=== PATIENT | female | born 1935 | race Caucasian/White ===

== ENCOUNTER → 2016-07-14 | Outpatient (CLI) | payer MEDICARE, OTHER ==
--- NOTE | 2016-07-14 18:53 | Diagnostic Imaging Report ---
Bilateral screening mammogram The current study was also evaluated with a Computer Aided Detection (CAD) system. Indication: Screening. No current complaints stated on the questionnaire. COMPARISON: 05/15/15 FINDINGS: The breasts are composed of scattered fibroglandular densities. There are scattered benign-appearing calcifications. Allowing for technique and positional differences, no suspicious change is seen. IMPRESSION: No significant change. ACR BI-RADS Category 2: Benign findings. Result letter will be mailed to the patient. Note: At least 10% of breast cancer is not imaged by mammography. Dictated by: Dictated on workstation # [id number]
== END ==
LOC: RAD 10:17
PROVIDERS: ATTEND Physician Assistant Medical
DX: Z12.31 Encounter for screening mammogram for malignant neoplasm of breast (principal)
CPT/HCPCS: 77067

== ENCOUNTER 2017-10-03 12:55 | Inpatient (IN) | payer MEDICARE, OTHER ==
[~2017-10-03] VITALS: Ht 165.1 cm; Wt 67.1 kg
[2017-10-03] VITALS (13 sets, daily range): BP systolic 128–145; BP diastolic 60–93
[2017-10-03] MEDS ORDERED: NS IV ONE (13:15)
[2017-10-03] MEDS ORDERED: ACETAMINOPHEN 500 MG TAB (TYLENOL) PO PRN (13:15)
[2017-10-03 13:21] LABS: BASOPHILS % (AUTO) 0 % (0-10); EOSINOPHILS % (AUTO) 0 % (0-10); HEMATOCRIT 29 % (35-52); HEMOGLOBIN 8.1 G/DL (11.5-16.0); LYMPHOCYTES # (AUTO) 0.7 X 10^3 (1.0-4.0); LYMPHOCYTES % (AUTO) 5 % (12-44); MEAN CORPUSCULAR HEMOGLOBIN 23 PG (25-34); MEAN CORPUSCULAR HGB CONC 28 G/DL (32-36); MEAN CORPUSCULAR VOLUME 82 FL (80-99); MEAN PLATELET VOLUME 9.1 FL (7.4-10.4); MONOCYTES # (AUTO) 0.8 X 10^3 (0.0-1.0); MONOCYTES % (AUTO) 5 % (0-12); NEUTROPHILS # (AUTO) 12.7 X 10^3 (1.8-7.8); NEUTROPHILS % (AUTO) 90 % (42-75); PLATELET COUNT 382 10^3/uL (130-400); RED BLOOD COUNT 3.48 10^6/uL (4.35-5.85); RED CELL DISTRIBUTION WIDTH 19.4 % (10.0-14.5); WHITE BLOOD COUNT 14.2 10^3/uL (4.3-11.0)
[2017-10-03 13:36] LABS: INR 1.7 (0.8-1.4); PROTHROMBIN TIME PATIENT 19.8 SEC (12.2-14.7)
[2017-10-03 13:40] LABS: CLARITY,URINE SLIGHTLY CLOUDY; COLOR,URINE YELLOW; GLUCOSE, URINE (UA) NEGATIVE (NEGATIVE); KETONES,URINE 1+ (NEGATIVE); LEUKOCYTE ESTERASE ,URINE 1+ (NEGATIVE); NITRITE,URINE NEGATIVE (NEGATIVE); PH,URINE 6 (5-9); PROTEIN,URINE 2+ (NEGATIVE); UROBILINOGEN,URINE 4 MG/DL (NORMAL)
[2017-10-03 13:40] LABS: ALBUMIN 1.8 GM/DL (3.2-4.5); BILIRUBIN,TOTAL 1.5 MG/DL (0.1-1.0); CALCIUM 7.8 MG/DL (8.5-10.1); CREATININE SERUM 0.96 MG/DL (0.60-1.30); TOTAL PROTEIN 5.6 GM/DL (6.4-8.2)
--- NOTE | 2017-10-03 13:51 | Diagnostic Imaging Report ---
INDICATION: Shortness of breath and fatigue and weakness. Frontal chest obtained at 01:23 p.m. Heart is normal in size. There are chronic-appearing increased interstitial markings. There is fullness in the left hilum, would consider chest CT with contrast to exclude underlying mass. There is no pneumothorax or pleural fluid. IMPRESSION: Fullness in left hilum, underlying mass cannot be excluded. Recommend CT chest for further evaluation. There are chronic-appearing increased interstitial markings. Dictated by: Dictated on workstation # [id number]
--- NOTE | 2017-10-03 13:57 | ED General ---
General Chief Complaint: General Problems/Pain Stated Complaint: AFIB WITH RVR,GEN WEAKNESS Nursing Triage Note: PT TO [facility] BY [facility] WITH CC OF FEVER AND GENERAL WEAKNESS. PT WAS INCONTENANT, FOUND IN BED BY KRYSTYNA TODAY. KRYSTYNA STATES PT FELL THIS A.M. GETTING A SKIN TEAR ON RT ARM. DENIES HITTING HER HEAD, NO LOC. Nursing Sepsis Screen: Possible Sepsis Risk Source of Information: Patient, EMS Exam Limitations: No Limitations (CHAUNCEY HENAO MD) History of Present Illness Date Seen by Provider: Oct 03, 2017 Time Seen by Provider: 13:00 Initial Comments Here by EMS with report of fever and weakness. Patient stays at [facility]. Patient was incontinent of urine and stool. Apparently fell this morning and had a skin tear to the right arm. No report of hitting her head or loss of consciousness. Patient is generally very weak and does have fever. Denies shortness of breath does have cough. Timing/Duration: 12 Hours, Getting Worse Severity: Moderate, Severe Associated Systoms: No Chest Pain; Cough, Fever/Chills; No Nausea/Vomiting, No Shortness of Air; Weakness (CHAUNCEY HENAO MD) Allergies and Home Medications Allergies Coded Allergies: No Known Drug Allergies (Unverified , 10/03/17) Patient Home Medication List Home Medication List Reviewed: Yes (CHAUNCEY HENAO MD) Home Medication List Reviewed: Yes (JADIEL HENDRICKSON APRN) Review of Systems Review of Systems Constitutional: see HPI; No chills; fever, malaise, weakness EENTM: no symptoms reported Respiratory: cough; No short of breath Cardiovascular: No chest pain; edema Gastrointestinal: No abdominal pain, No nausea, No vomiting; other ( incontinent of stool) Genitourinary: No dysuria; incontinence, other (foul-smelling urine) Musculoskeletal: No back pain; muscle weakness Skin: lesions (left lower extremity and right arm) Psychiatric/Neurological: Denies Headache; Weakness (CHAUNCEY HENAO MD) All Other Systems Reviewed Negative Unless Noted: Yes (CHAUNCEY HENAO MD) Past Nxiumsq-Mqvsxf-Yejcih Hx Past Med/Social Hx: Reviewed Nursing Past Med/Soc Hx (CHAUNCEY HENAO MD) Patient Social History Alcohol Use: Denies Use Recreational Drug Use: No Smoking Status: Never a Smoker Recent Foreign Travel: No Contact w/Someone Who Travel: No Recent Infectious Disease Expo: No Recent Hopitalizations: No (CHAUNCEY HENAO MD) Seasonal Allergies Seasonal Allergies: No (CHAUNCEY HENAO MD) Past Medical History Surgeries: Yes (BI LAT HIP) Eye Surgery, Gallbladder, Hysterectomy, Orthopedic Respiratory: No Cardiac: Yes Hypertension Genitourinary: No Gastrointestinal: No Musculoskeletal: Yes Endocrine: No HEENT: Yes Cataract Cancer: No Psychosocial: No Integumentary: No (CHAUNCEY HENAO MD) Family Medical History Reviewed Nursing Family Hx (CHAUNCEY HENAO MD) No Pertinent Family Hx (CHAUNCEY HENAO MD) Physical Exam-Suspected Sepsis Physical Exam Vital Signs Vital Signs - First Documented 10/03/17 16:10 Resp 20 (JADIEL HENDRICKSON APRN) Vital Signs Capillary Refill : Less Than 3 Seconds (CHAUNCEY HENAO MD) Blood Pressure Mean: 86 Height, Weight, BMI Height: 5'5.00" Weight: 140lbs. oz. 63.803010et; BMI Method:Stated General Appearance: Mild Distress, Thin HEENT: PERRL/EOMI, Pharynx Normal Neck: Non Tender, Supple Respiratory: No Respiratory Distress, Crackles Cardiovascular: No Murmur, Tachycardia Gastrointestinal: Non Tender, Soft Back: Normal Inspection, No CVA Tenderness, No Vertebral Tenderness Extremity: Normal Capillary Refill, Pedal Edema (2+ to the mid tibia bilateral) Neurologic/Psychiatric: Alert, Motor Weakness (global) Skin: normal color, other (skin breakdown to the buttocks. Incontinent of urine and stool and noted on legs and groin area. Skin tear to the right forearm and healing wound to the left lower extremity. Both of these covered with dressings.) (CHAUNCEY HENAO MD) Focused Exam Lactate Level 10/03/17 13:00: Lactic Acid Level 5.05*H 10/03/17 15:05: Lactic Acid Level 2.29*H 10/03/17 18:05: Lactic Acid Level 1.38 (JADIEL HENDRICKSON APRN) Lactic Acid Level (JADIEL HENDRICKSON APRN) Procedures/Interventions Lumen: triple Central Line Procedure: betadine prep, sterile drapes applied, sterile dressing applied Position: internal jugular (R) Anesthesia: Lidocaine Volume Anesthetic (ccs): 3 Complications: none Post Position: sutured (JADIEL HENDRICKSON APRN) Progress/Results/Core Measures Suspected Sepsis Recent Fever Within 48 Hours: Yes Infection Criteria Present: Suspected New Infection New/Unexplained Altered Menta: No Sepsis Screen: Possible Sepsis Risk SIRS Temperature:100.2 Pulse: 93 Respiratory Rate: Laboratory Tests 10/03/17 13:00: White Blood Count 14.2H Blood Pressure 124 /68 Mean: 86 10/03/17 13:00: Lactic Acid Level 5.05*H 10/03/17 15:05: Laboratory Tests 10/03/17 13:00: Creatinine 0.96, INR Comment 1.7H, Platelet Count 382, Total Bilirubin 1.5H (CHAUNCEY HENAO MD) Results/Orders Lab Results Laboratory Tests Test 10/03/17 13:00 10/03/17 13:15 10/03/17 15:05 10/03/17 16:36 Range/Units White Blood Count 14.2 H 4.3-11.0 10^3/uL Red Blood Count 3.48 L 4.35-5.85 10^6/uL Hemoglobin 8.1 L 11.5-16.0 G/DL Hematocrit 29 L 35-52 % Mean Corpuscular Volume 82 80-99 FL Mean Corpuscular Hemoglobin 23 L 25-34 PG Mean Corpuscular Hemoglobin Concent 28 L 32-36 G/DL Red Cell Distribution Width 19.4 H 10.0-14.5 % Platelet Count 382 130-400 10^3/uL Mean Platelet Volume 9.1 7.4-10.4 FL Neutrophils (%) (Auto) 90 H 42-75 % Lymphocytes (%) (Auto) 5 L 12-44 % Monocytes (%) (Auto) 5 0-12 % Eosinophils (%) (Auto) 0 0-10 % Basophils (%) (Auto) 0 0-10 % Neutrophils # (Auto) 12.7 H 1.8-7.8 X 10^3 Lymphocytes # (Auto) 0.7 L 1.0-4.0 X 10^3 Monocytes # (Auto) 0.8 0.0-1.0 X 10^3 Eosinophils # (Auto) 0.0 0.0-0.3 10^3/uL Basophils # (Auto) 0.0 0.0-0.1 10^3/uL Neutrophils % (Manual) 90 % Lymphocytes % (Manual) 4 % Monocytes % (Manual) 2 % Eosinophils % (Manual) 1 % Basophils % (Manual) 0 % Band Neutrophils 3 % Hypochromasia MODERATE Anisocytosis MARKED Spherocytes SLIGHT Prothrombin Time 19.8 H 12.2-14.7 SEC INR Comment 1.7 H 0.8-1.4 Activated Partial Thromboplast Time 27 24-35 SEC Sodium Level 146 H 135-145 MMOL/L Potassium Level 2.3 *L 3.6-5.0 MMOL/L Chloride Level 97 L 98-107 MMOL/L Carbon Dioxide Level 34 H 21-32 MMOL/L Anion Gap 15 H 5-14 MMOL/L Blood Urea Nitrogen 17 7-18 MG/DL Creatinine 0.96 0.60-1.30 MG/DL Estimat Glomerular Filtration Rate 56 BUN/Creatinine Ratio 18 Glucose Level 189 H 70-105 MG/DL Lactic Acid Level 5.05 *H 2.29 *H 0.50-2.00 MMOL/L Calcium Level 7.8 L 8.5-10.1 MG/DL Corrected Calcium 9.6 8.5-10.1 MG/DL Total Bilirubin 1.5 H 0.1-1.0 MG/DL Aspartate Amino Transf (AST/SGOT) 13 5-34 U/L Alanine Aminotransferase (ALT/SGPT) 6 0-55 U/L Alkaline Phosphatase 84 40-136 U/L Total Protein 5.6 L 6.4-8.2 GM/DL Albumin 1.8 L 3.2-4.5 GM/DL Urine Color YELLOW Urine Clarity SLIGHTLY CLOUDY Urine pH 6 5-9 Urine Specific [place] 1.015 L 1.016-1.022 Urine Protein 2+ H NEGATIVE Urine Glucose (UA) NEGATIVE NEGATIVE Urine Ketones 1+ H NEGATIVE Urine Nitrite NEGATIVE NEGATIVE Urine Bilirubin 1+ H NEGATIVE Urine Urobilinogen 4 H NORMAL MG/DL Urine Leukocyte Esterase 1+ H NEGATIVE Urine RBC (Auto) 4+ H NEGATIVE Urine RBC 0-2 /HPF Urine WBC RARE /HPF Urine Squamous Epithelial Cells 2-5 /HPF Urine Crystals NONE /LPF Urine Bacteria NEGATIVE /HPF Urine Casts NONE /LPF Urine Mucus SMALL H /LPF Urine Culture Indicated NO Glucometer 174 H 70-110 MG/DL Test 10/03/17 17:15 10/03/17 18:05 Range/Units Sodium Level 145 135-145 MMOL/L Potassium Level 2.0 *L 3.6-5.0 MMOL/L Chloride Level 102 98-107 MMOL/L Carbon Dioxide Level 34 H 21-32 MMOL/L Anion Gap 9 5-14 MMOL/L Blood Urea Nitrogen 16 7-18 MG/DL Creatinine 0.79 0.60-1.30 MG/DL Estimat Glomerular Filtration Rate > 60 BUN/Creatinine Ratio 20 Glucose Level 179 H 70-105 MG/DL Calcium Level 6.9 L 8.5-10.1 MG/DL Corrected Calcium 8.7 8.5-10.1 MG/DL Magnesium Level 1.1 L 1.8-2.4 MG/DL Total Bilirubin 1.4 H 0.1-1.0 MG/DL Aspartate Amino Transf (AST/SGOT) 14 5-34 U/L Alanine Aminotransferase (ALT/SGPT) 8 0-55 U/L Alkaline Phosphatase 73 40-136 U/L Total Protein 5.0 L 6.4-8.2 GM/DL Albumin 1.7 L 3.2-4.5 GM/DL Lactic Acid Level 1.38 0.50-2.00 MMOL/L (JADIEL HENDRICKSON APRN) Micro Results Microbiology 10/03/17 Urine Culture - Preliminary, Resulted Sent To Rml (JADIEL HENDRICKSON APRN) Medications Given in ED Current Medications Medications Dose Ordered Sig/Lorne Route Start Time Stop Time Status Last Admin Dose Admin Acetaminophen 1,000 mg ONCE PRN PO 10/03/17 13:15 10/03/17 13:31 DC 10/03/17 13:30 1,000 MG Iohexol 75 ml ONCE ONCE IV 10/03/17 14:30 10/03/17 14:31 DC 10/03/17 14:50 75 ML Piperacillin Sod/ Tazobactam Sod 4.5 gm/Dextrose 100 ml @ 200 mls/hr ONCE ONCE IV 10/03/17 14:15 10/03/17 14:44 DC 10/03/17 15:05 200 MLS/HR Sodium Chloride 250 ml ONCE ONCE IV 10/03/17 14:30 10/03/17 14:31 DC 10/03/17 14:50 80 ML Sodium Chloride 1,973.13 ml @ 1,973.13 mls/hr ONCE ONCE IV 10/03/17 13:15 10/03/17 14:14 DC 10/03/17 13:31 1,973.13 MLS/HR (JADIEL HENDRICKSON APRN) Vital Signs/I&O 10/03/17 10/03/17 10/03/17 10/03/17 12:55 12:55 13:30 16:10 Temp 100.2 100.2 96.0 Pulse 93 78 Resp 20 B/P (MAP) 124/68 (86) 129/65 (86) Pulse Ox 98 98 98 O2 Delivery Nasal Cannula Nasal Cannula Nasal Cannula O2 Flow Rate 2.00 2.00 2.00 10/03/17 10/03/17 10/03/17 10/03/17 16:15 16:23 16:30 16:45 Temp 97.7 Pulse 87 84 78 Resp 23 15 B/P (MAP) 143/93 (110) 145/60 (88) Pulse Ox 95 95 93 O2 Delivery Room Air Room Air Room Air 10/03/17 10/03/17 10/03/17 10/03/17 17:00 17:15 17:30 17:45 Pulse 82 73 85 76 Resp 15 31 10 15 B/P (MAP) 135/72 (93) 135/67 (89) 144/74 (97) 140/70 (93) Pulse Ox 95 94 96 98 O2 Delivery Room Air Room Air Room Air Room Air 10/03/17 10/03/17 10/03/17 10/03/17 18:00 19:00 19:00 19:35 Pulse 78 84 97 81 Resp 21 14 B/P (MAP) 141/72 (95) 137/81 (99) Pulse Ox 93 97 93 O2 Delivery Room Air Room Air 10/03/17 10/03/17 10/03/17 10/03/17 20:00 20:00 20:00 20:04 Temp 97.1 Pulse 91 Resp 12 B/P (MAP) 138/82 (100) Pulse Ox 95 100 O2 Delivery Room Air Room Air Nasal Cannula O2 Flow Rate 2.00 10/03/17 10/03/17 21:00 21:59 Pulse 72 Resp 14 B/P (MAP) 128/69 (88) Pulse Ox 97 95 O2 Delivery Room Air Room Air (HENDRICKSON,PETER J PORTAL ARCHITECT) Vital Signs/I&O Capillary Refill : Less Than 3 Seconds (CHAUNCEY HENAO MD) Blood Pressure Mean: 86 Progress Note : Progress Note Seen and evaluated on arrival by EMS. Patient ill-appearing. Sepsis workup initiated including labs, blood cultures and lactic acid. UA ordered as well.. Normal saline 500 mL bolus from EMS ongoing. Due to the appearance and concerns for sepsis, high volume fluid resuscitation initiated at 30 mL/kg. Lactic acid elevated at 5.05. Fluids continuing. Chest x-ray shows concerning mass to the left upper chest and CT ordered. Given patient's septic shock condition, central line indicated and was placed as dictated above. CT chest with contrast after. Zosyn 4.5 g IV initiated. 1530: I did discuss the case with Dr. Quinn. Patient does have septic shock findings with elevated lactic acid. CT chest would indicate mass in the left upper chest. Concerns for possible postobstructive pneumonia. She accepts patient for admission to the ICU. Discussed with patient and family who agree with plan. 1540: I attest a focused exam at this time. (CHAUNCEY HENAO MD) Diagnostic Imaging Diagonstic Imaging: Xray Plain Films/CT/US/NM/MRI: chest Comments VIA [facility]. [place], [place] NAME: GALLO VERDUZCO [facility] REC#: [id number] PT STATUS: REG ER : 1935 PHYSICIAN: CHAUNCEY HENAO MD ADMIT DATE: 10/03/17/ER Draft Date of Exam:10/03/17 CHEST 1 VIEW, AP/PA ONLY INDICATION: Shortness of breath and fatigue and weakness. Frontal chest obtained at 01:23 p.m. Heart is normal in size. There are chronic-appearing increased interstitial markings. There is fullness in the left hilum, would consider chest CT with contrast to exclude underlying mass. There is no pneumothorax or pleural fluid. IMPRESSION: Fullness in left hilum, underlying mass cannot be excluded. Recommend CT chest for further evaluation. There are chronic-appearing increased interstitial markings. Dictated on workstation # [id number] Dict: 10/03/17 1346 Trans: 10/03/17 1350 [id number] Interpreted by: AMELIE CONRAD MD Electronically signed by: Lucy Imaging: Xray Plain Films/CT/US/NM/MRI: chest Comments VIA [facility]. [place], [place] NAME: GALLO VERDUZCO [facility] REC#: [id number] PT STATUS: REG ER : 1935 PHYSICIAN: CHAUNCEY HENAO MD ADMIT DATE: 10/03/17/ER Draft Date of Exam:10/03/17 CHEST 1 VIEW, AP/PA ONLY INDICATION: Line placement Frontal chest obtained at 242 hours p.m. and compared to same day at 123 hours p.m. Heart is normal in size. Fullness of the left hilum is again noted, underlying mass not excluded. There are chronic appearing increased interstitial markings with some basilar scarring in the right side. There is a right IJ central catheter with tip overlying the SVC right atrial junction. There is no pneumothorax following line placement. IMPRESSION: Chronic interstitial changes with some parenchymal scarring in right base. New central catheter seen with tip overlying SVC distally. No pneumothorax. Fullness in left perihilar region, consider chest CT to rule out underlying mass. Dictated on workstation # [id number] Dict: 10/03/17 1447 Trans: 10/03/17 1452 [facility] [id number] Interpreted by: AMELIE CONRAD MD Electronically signed by: (CHAUNCEY HENAO MD) Departure Communication (Admissions) Time/Spoke to Admitting Phy: 15:30 (CHAUNCEY HENAO MD) Impression Primary Impression: Septic shock Additional Impressions: Mass of left lung Pneumonia involving left lung Qualified Codes: J18.1 - Lobar pneumonia, unspecified organism Disposition: ADMITTED INPATIENT Condition: Stable Admissions Decision to Admit Reason: Admit from ER (General) Decision to Admit/Date: Oct 03, 2017 Time/Decision to Admit Time: 15:30 (CHAUNCEY HENAO MD) Departure-Patient Inst. Referrals: MARY WHITAKER DO (PCP) Primary Care Physician CHAUNCEY HENAO MD Oct 03, 2017 13:57 JADIEL HENDRICKSON APRN Oct 03, 2017 14:54
[2017-10-03 14:00] LABS: BACTERIA,URINE NEGATIVE /HPF; BILIRUBIN,URINE 1+ (NEGATIVE); RBC,URINE 0-2 /HPF; WBC,URINE RARE /HPF
[2017-10-03 14:01] LABS: ANISOCYTOSIS MARKED; BAND NEUTROPHILS 3 %; BASOPHILS % (MANUAL) 0 %; EOSINOPHILS % (MANUAL) 1 %; HYPOCHROMASIA MODERATE; LYMPHOCYTES % (MANUAL) 4 %; MONOCYTES % (MANUAL) 2 %; NEUTROPHILS % (MANUAL) 90 %; SPHEROCYTES SLIGHT
[2017-10-03 14:03] LABS: POTASSIUM 2.3 MMOL/L (3.6-5.0)
[2017-10-03] MEDS ORDERED: PIPERACILLIN SODIUM/TAZOBACTAM 4.5 GM in D5W 100 ML IVPB 100 ML IV ONE (14:15)
[2017-10-03] MEDS ORDERED: IOHEXOL 350 MG/ML 100 ML (OMNIPAQUE 350) VIAL IV ONE (14:30)
[2017-10-03] MEDS ORDERED: NS 250 ML (IVPB) BAG IV ONE (14:30)
[2017-10-03] MEDS ORDERED: RECEIVED CONTRAST (Hold Metformin) IV SCH (14:30)
--- NOTE | 2017-10-03 14:52 | Diagnostic Imaging Report ---
INDICATION: Line placement Frontal chest obtained at 242 hours p.m. and compared to same day at 123 hours p.m. Heart is normal in size. Fullness of the left hilum is again noted, underlying mass not excluded. There are chronic appearing increased interstitial markings with some basilar scarring in the right side. There is a right IJ central catheter with tip overlying the SVC right atrial junction. There is no pneumothorax following line placement. IMPRESSION: Chronic interstitial changes with some parenchymal scarring in right base. New central catheter seen with tip overlying SVC distally. No pneumothorax. Fullness in left perihilar region, consider chest CT to rule out underlying mass. Dictated by: Dictated on workstation # [id number]
--- NOTE | 2017-10-03 15:52 | Diagnostic Imaging Report ---
PROCEDURE: CT chest with contrast only. TECHNIQUE: Multiple contiguous axial images were obtained through the chest after administration of intravenous contrast. INDICATION: Cough, fever COMPARISON: There are no previous CT chest examinations available for comparison. FINDINGS: The plain film examination of the chest performed earlier today at 1:23 PM noted a fullness in the left hilum raising the question of a neoplastic mass in this area. On this exam, there is indeed a sizable 5.4 x 6.6 x 6.1 CM heterogeneous mass along the medial aspect of the left upper lung. This mass should be considered neoplastic until proven otherwise. The heart is mildly enlarged. There are coronary calcifications evident. The aorta is not abnormally dilated and there is no sign of dissection. The pulmonary arteries were not well opacified and consequently difficult to assess for a pulmonary embolus. There is no mediastinal or hilar adenopathy. There are chronic pulmonary changes evident and there are coarse interstitial densities about both darryl and in both lung bases, particularly on the right. There is no obvious breast mass. The sections through the upper abdomen fail to show any sign of an acute abnormality. There are surgical clips about the gallbladder fossa consistent with a prior cholecystectomy. There appears to be a small collection of fluid in this area. This may be fluid within the bowel as opposed to a free fluid collection. Also, there is a 1.3 x 1.4 CM nodule associated with the medial nenita of the right adrenal gland. This may represent a benign process. The possibility that this is secondary to metastatic disease secondary to the large lung mass cannot be entirely excluded however. If further imaging is desired, PET CT would be recommended. The bone windows show no sign of a fracture or of a destructive lesion. IMPRESSION: 1. There is a large mass along the medial aspect of the left upper lobe. This should be considered neoplastic until proven otherwise. 2. There is cardiomegaly and coronary artery disease and chronic pulmonary disease. There is no acute cardiopulmonary abnormality noted otherwise. 3. The nodule associated with the right adrenal gland may represent a benign process. The possibility that this is neoplastic in nature cannot be entirely excluded. Recommendations as above. 4. The fluid collection in the right upper quadrant may be fluid within the bowel. If further study is desired, then a complete CT abdomen and pelvis exam should be obtained. Dictated by: Dictated on workstation # [id number]
--- OUTSIDE RECORDS SUMMARY | 2017-10-03 16:35 | XMS REPORT | Continuity of Care Document ---
Author Author [facility] Organization [facility] [address] [facility] Address Unknown Phone Unavailable Allergies There is no data. Medications There is no data. 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 Results There is no data. Encounters ACCT No. Visit Date/Time Discharge Status Pt. Type Provider Facility Loc./Unit Complaint [id number] 07/14/2016 10:17:00 07/14/2016 23:59:59 CLS Outpatient CHERELLE MILLER [facility] [address] RAD SCREENING FOR BREAST CA [id number] 05/15/2015 10:22:00 05/15/2015 23:59:59 CLS Outpatient CHERELLE MILLER [facility] [address] [facility] RAD SCREENING, OSTEOPOROSIS
[2017-10-03] MEDS ORDERED: LACTATED RINGERS 1,000 ML IV ONE (17:42)
[2017-10-03 17:52] LABS: ALANINE AMINOTRANSFERASE 8 U/L (0-55); ALBUMIN 1.7 GM/DL (3.2-4.5); ALKALINE PHOSPHATASE 73 U/L (40-136); BILIRUBIN,TOTAL 1.4 MG/DL (0.1-1.0); BUN/CREATININE RATIO 20; CALCIUM 6.9 MG/DL (8.5-10.1); CARBON DIOXIDE 34 MMOL/L (21-32); CHLORIDE 102 MMOL/L (98-107); CREATININE SERUM 0.79 MG/DL (0.60-1.30); GFR ESTIMATED > 60; GLUCOSE 179 MG/DL (70-105); MAGNESIUM 1.1 MG/DL (1.8-2.4); SODIUM 145 MMOL/L (135-145)
[2017-10-03] MEDS: LACTATED RINGERS 1,000 ML IV SCH (17:53)
--- NOTE | 2017-10-03 18:25 | History & Physicial ([facility]) ---
HPI History of Present Illness: 82 yo F that presented to ER with a week of not feeling good. States that she had fatigue for the last 2 months with weight loss of 20#. States that she had chills and night sweats during this time. Denies any pain other then chronic pain in her low back. Couple day history of shortness of breath. Patient and grandson are poor historians Source: patient, family (Grandson) Date seen by provider: Oct 03, 2017 Time Seen by Provider: 17:30 Attending Physician Gene Quinn MD PCP Valentine Hou DO Consult Date of Admission Oct 03, 2017 at 15:35 Home Medications Home Medications Reviewed patient Home Medication Reconciliation performed by pharmacy medication reconciliations sterile processing technician and/or nursing. Patients Allergies have been reviewed. Allergies Coded Allergies: No Known Drug Allergies (Unverified , 10/03/17) VSW-Nlxwam-Rifywu Hx Patient Social History Living Status: Lives at home with grandson Alcohol Use: Denies Use Recreational Drug Use: No Smoking Status: Never a Smoker Recent Foreign Travel: No Contact w/other who traveled: No Recent Hopitalizations: No Recent Infectious Disease Expo: No Physical Abuse Screen: No Sexual Abuse: No Immunizations Up To Date Date of Pneumonia Vaccine: Oct 03, 2012 Past Medical History Diabetes HTN Polio Family Medical History Significant Family History: No Pertinent Family Hx Review of Systems ([facility]) Constitutional: chills, weakness, weight loss EENTM: no symptoms reported Respiratory: dyspnea on exertion, short of breath Cardiovascular: no symptoms reported; No chest pain, No palpitations Gastrointestinal: No abdominal pain, No constipation, No diarrhea; loss of appetite; No nausea, No vomiting Genitourinary: no symptoms reported : No Musculoskeletal: back pain (chronic) Skin: lesions, rash Psychiatric/Neurological: No Symptoms Reported Reviewed Test Results Reviewed Test Results Lab Laboratory Tests Test 10/03/17 13:00 10/03/17 13:15 10/03/17 15:05 10/03/17 16:36 Range/Units White Blood Count 14.2 H 4.3-11.0 10^3/uL Red Blood Count 3.48 L 4.35-5.85 10^6/uL Hemoglobin 8.1 L 11.5-16.0 G/DL Hematocrit 29 L 35-52 % Mean Corpuscular Volume 82 80-99 FL Mean Corpuscular Hemoglobin 23 L 25-34 PG Mean Corpuscular Hemoglobin Concent 28 L 32-36 G/DL Red Cell Distribution Width 19.4 H 10.0-14.5 % Platelet Count 382 130-400 10^3/uL Mean Platelet Volume 9.1 7.4-10.4 FL Neutrophils (%) (Auto) 90 H 42-75 % Lymphocytes (%) (Auto) 5 L 12-44 % Monocytes (%) (Auto) 5 0-12 % Eosinophils (%) (Auto) 0 0-10 % Basophils (%) (Auto) 0 0-10 % Neutrophils # (Auto) 12.7 H 1.8-7.8 X 10^3 Lymphocytes # (Auto) 0.7 L 1.0-4.0 X 10^3 Monocytes # (Auto) 0.8 0.0-1.0 X 10^3 Eosinophils # (Auto) 0.0 0.0-0.3 10^3/uL Basophils # (Auto) 0.0 0.0-0.1 10^3/uL Neutrophils % (Manual) 90 % Lymphocytes % (Manual) 4 % Monocytes % (Manual) 2 % Eosinophils % (Manual) 1 % Basophils % (Manual) 0 % Band Neutrophils 3 % Hypochromasia MODERATE Anisocytosis MARKED Spherocytes SLIGHT Prothrombin Time 19.8 H 12.2-14.7 SEC INR Comment 1.7 H 0.8-1.4 Activated Partial Thromboplast Time 27 24-35 SEC Sodium Level 146 H 135-145 MMOL/L Potassium Level 2.3 *L 3.6-5.0 MMOL/L Chloride Level 97 L 98-107 MMOL/L Carbon Dioxide Level 34 H 21-32 MMOL/L Anion Gap 15 H 5-14 MMOL/L Blood Urea Nitrogen 17 7-18 MG/DL Creatinine 0.96 0.60-1.30 MG/DL Estimat Glomerular Filtration Rate 56 BUN/Creatinine Ratio 18 Glucose Level 189 H 70-105 MG/DL Lactic Acid Level 5.05 *H 2.29 *H 0.50-2.00 MMOL/L Calcium Level 7.8 L 8.5-10.1 MG/DL Corrected Calcium 9.6 8.5-10.1 MG/DL Total Bilirubin 1.5 H 0.1-1.0 MG/DL Aspartate Amino Transf (AST/SGOT) 13 5-34 U/L Alanine Aminotransferase (ALT/SGPT) 6 0-55 U/L Alkaline Phosphatase 84 40-136 U/L Total Protein 5.6 L 6.4-8.2 GM/DL Albumin 1.8 L 3.2-4.5 GM/DL Urine Color YELLOW Urine Clarity SLIGHTLY CLOUDY Urine pH 6 5-9 Urine Specific [place] 1.015 L 1.016-1.022 Urine Protein 2+ H NEGATIVE Urine Glucose (UA) NEGATIVE NEGATIVE Urine Ketones 1+ H NEGATIVE Urine Nitrite NEGATIVE NEGATIVE Urine Bilirubin 1+ H NEGATIVE Urine Urobilinogen 4 H NORMAL MG/DL Urine Leukocyte Esterase 1+ H NEGATIVE Urine RBC (Auto) 4+ H NEGATIVE Urine RBC 0-2 /HPF Urine WBC RARE /HPF Urine Squamous Epithelial Cells 2-5 /HPF Urine Crystals NONE /LPF Urine Bacteria NEGATIVE /HPF Urine Casts NONE /LPF Urine Mucus SMALL H /LPF Urine Culture Indicated NO Glucometer 174 H 70-110 MG/DL Test 10/03/17 17:15 10/03/17 18:05 Range/Units Sodium Level 145 135-145 MMOL/L Potassium Level 2.0 *L 3.6-5.0 MMOL/L Chloride Level 102 98-107 MMOL/L Carbon Dioxide Level 34 H 21-32 MMOL/L Anion Gap 9 5-14 MMOL/L Blood Urea Nitrogen 16 7-18 MG/DL Creatinine 0.79 0.60-1.30 MG/DL Estimat Glomerular Filtration Rate > 60 BUN/Creatinine Ratio 20 Glucose Level 179 H 70-105 MG/DL Calcium Level 6.9 L 8.5-10.1 MG/DL Corrected Calcium 8.7 8.5-10.1 MG/DL Magnesium Level 1.1 L 1.8-2.4 MG/DL Total Bilirubin 1.4 H 0.1-1.0 MG/DL Aspartate Amino Transf (AST/SGOT) 14 5-34 U/L Alanine Aminotransferase (ALT/SGPT) 8 0-55 U/L Alkaline Phosphatase 73 40-136 U/L Total Protein 5.0 L 6.4-8.2 GM/DL Albumin 1.7 L 3.2-4.5 GM/DL Radiology Date of Exam: 10/03/17 CT CHEST W PROCEDURE: CT chest with contrast only. TECHNIQUE: Multiple contiguous axial images were obtained through the chest after administration of intravenous contrast. INDICATION: Cough, fever COMPARISON: There are no previous CT chest examinations available for comparison. FINDINGS: The plain film examination of the chest performed earlier today at 1:23 PM noted a fullness in the left hilum raising the question of a neoplastic mass in this area. On this exam, there is indeed a sizable 5.4 x 6.6 x 6.1 CM heterogeneous mass along the medial aspect of the left upper lung. This mass should be considered neoplastic until proven otherwise. The heart is mildly enlarged. There are coronary calcifications evident. The aorta is not abnormally dilated and there is no sign of dissection. The pulmonary arteries were not well opacified and consequently difficult to assess for a pulmonary embolus. There is no mediastinal or hilar adenopathy. There are chronic pulmonary changes evident and there are coarse interstitial densities about both darryl and in both lung bases, particularly on the right. There is no obvious breast mass. The sections through the upper abdomen fail to show any sign of an acute abnormality. There are surgical clips about the gallbladder fossa consistent with a prior cholecystectomy. There appears to be a small collection of fluid in this area. This may be fluid within the bowel as opposed to a free fluid collection. Also, there is a 1.3 x 1.4 CM nodule associated with the medial nenita of the right adrenal gland. This may represent a benign process. The possibility that this is secondary to metastatic disease secondary to the large lung mass cannot be entirely excluded however. If further imaging is desired, PET CT would be recommended. The bone windows show no sign of a fracture or of a destructive lesion. IMPRESSION: 1. There is a large mass along the medial aspect of the left upper lobe. This should be considered neoplastic until proven otherwise. 2. There is cardiomegaly and coronary artery disease and chronic pulmonary disease. There is no acute cardiopulmonary abnormality noted otherwise. 3. The nodule associated with the right adrenal gland may represent a benign process. The possibility that this is neoplastic in nature cannot be entirely excluded. Recommendations as above. 4. The fluid collection in the right upper quadrant may be fluid within the bowel. If further study is desired, then a complete CT abdomen and pelvis exam should be obtained. Physical Exam-([facility]) Physical Exam Vital Signs VS - Last 72 Hours, by Label 10/03/17 10/03/17 10/03/17 10/03/17 12:55 12:55 13:30 16:10 Temp 100.2 100.2 96.0 Pulse 93 78 Resp 20 B/P (MAP) 124/68 (86) 129/65 (86) Pulse Ox 98 98 98 O2 Delivery Nasal Cannula Nasal Cannula Nasal Cannula O2 Flow Rate 2.00 2.00 2.00 10/03/17 10/03/17 10/03/17 10/03/17 16:15 16:23 16:30 16:45 Temp 97.7 Pulse 87 84 78 Resp 23 15 B/P (MAP) 143/93 (110) 145/60 (88) Pulse Ox 95 95 93 O2 Delivery Room Air Room Air Room Air 10/03/17 10/03/17 10/03/17 10/03/17 17:00 17:15 17:30 17:45 Pulse 82 73 85 76 Resp 15 31 10 15 B/P (MAP) 135/72 (93) 135/67 (89) 144/74 (97) 140/70 (93) Pulse Ox 95 94 96 98 O2 Delivery Room Air Room Air Room Air Room Air 10/03/17 10/03/17 10/03/17 10/03/17 18:00 19:00 19:00 19:35 Pulse 78 84 97 81 Resp 21 14 B/P (MAP) 141/72 (95) 137/81 (99) Pulse Ox 93 97 93 O2 Delivery Room Air Room Air 10/03/17 10/03/17 10/03/17 20:00 20:04 21:00 Pulse 91 72 Resp 12 14 B/P (MAP) 138/82 (100) 128/69 (88) Pulse Ox 100 97 O2 Delivery Room Air Nasal Cannula Room Air O2 Flow Rate 2.00 Capillary Refill : Less Than 3 Seconds General Appearance: thin (ill appearing) Respiratory: lungs clear, normal breath sounds, no respiratory distress Cardiovascular: regular rate, rhythm, no murmur Gastrointestinal: non tender, soft, no organomegaly; No hepatomegaly, No spleenomegaly Extremities: no calf tenderness, pedal edema (3+ bilaterally) Neurologic/Psychiatric: alert, normal mood/affect, oriented x 3, motor weakness , sensory deficit, other (unable to lift legs off bed) Assessment/Plan Assessment/Plan Admission Status: Inpatient Order (span 2 midnights) Reason for Inpatient Admission: Requiring hourly care with IV antibioitics (1) Septic shock Status: Acute Assessment & Plan: - Patient has completed 30 mg/kg fluids, VS stable, LA resolved - Started on Vanc/zosyn, blood culture pending (2) Pneumonia involving left lung Status: Acute Assessment & Plan: - Likely post obstructive 2/2 mass - Will consult Emma to see if patient is candidate for broch vs Interventional Rad for bx Qualifiers: Qualified Codes: J18.1 - Lobar pneumonia, unspecified organism (3) Mass of left lung Status: Acute (4) Wound of left leg Status: Acute Assessment & Plan: - Consult wound care - Concerned for poor vascular supply Qualifiers: Qualified Codes: S81.802A - Unspecified open wound, left lower leg, initial encounter (5) Localized swelling of both lower extremities Status: Chronic (6) Decubital ulcer Status: Chronic Assessment & Plan: - Wound care Qualifiers: Qualified Codes: L89.159 - Pressure ulcer of sacral region, unspecified stage (7) Diabetes Status: Chronic Assessment & Plan: - SSI, A1c pending Qualifiers: Qualified Codes: E11.9 - Type 2 diabetes mellitus without complications (8) HTN (hypertension) Status: Chronic Assessment & Plan: - Will hold bp meds due to shock at this time, will continue to monitor Qualifiers: Qualified Codes: I10 - Essential (primary) hypertension (9) Severe protein-calorie malnutrition Status: Chronic (10) Elevated INR Status: Acute Assessment & Plan: - will repeat in AM (11) Elevated bilirubin Status: Acute Assessment & Plan: - Repeat in AM (12) Normocytic anemia Status: Chronic Assessment & Plan: - Will add iron panel, repeat in AM (13) Hypokalemia Status: Acute Assessment & Plan: - Replace and repeat (14) Hypomagnesemia Status: Acute Assessment & Plan: - Replace and repeat in AM Clinical Quality Measures DVT/VTE Risk/Contraindication: Risk Factor Score Per Nursin RFS Level Per Nursing on Admit: 4+=Very High Copy Copies To 1: GENE ADAM MD Oct 03, 2017 18:25
[2017-10-03] MEDS: POTASSIUM CL 10MEQ/50ML IVPB 50 ML IV SCH ×5 (18:26→23:14)
[2017-10-03] MEDS: MAGNESIUM 1 GM/100 ML IVPB 100 ML IV SCH ×4 (18:45→21:44)
[2017-10-03] MEDS ORDERED: RT-ALBUTEROL SULF 2.5 MG/3 ML PRE-MIX VIAL INH PRN (20:15)
[2017-10-03] MEDS: RT-ALBUTEROL SULF 2.5 MG/3 ML PRE-MIX VIAL INH SCH (21:59)
[2017-10-04] VITALS (24 sets, daily range): BP systolic 108–144; BP diastolic 62–90
[2017-10-04] MEDS: POTASSIUM CL 10MEQ/50ML IVPB 50 ML IV SCH ×2 (01:10→04:08)
[2017-10-04 03:33] LABS: BASOPHILS % (AUTO) 0 % (0-10); EOSINOPHILS % (AUTO) 0 % (0-10); HEMATOCRIT 25 % (35-52); HEMOGLOBIN 7.4 G/DL (11.5-16.0); LYMPHOCYTES # (AUTO) 0.9 X 10^3 (1.0-4.0); LYMPHOCYTES % (AUTO) 6 % (12-44); MEAN CORPUSCULAR HEMOGLOBIN 24 PG (25-34); MEAN CORPUSCULAR HGB CONC 30 G/DL (32-36); MEAN CORPUSCULAR VOLUME 81 FL (80-99); MEAN PLATELET VOLUME 9.1 FL (7.4-10.4); MONOCYTES # (AUTO) 0.5 X 10^3 (0.0-1.0); MONOCYTES % (AUTO) 4 % (0-12); NEUTROPHILS # (AUTO) 12.8 X 10^3 (1.8-7.8); NEUTROPHILS % (AUTO) 90 % (42-75); PLATELET COUNT 277 10^3/uL (130-400); RED BLOOD COUNT 3.11 10^6/uL (4.35-5.85); RED CELL DISTRIBUTION WIDTH 19.2 % (10.0-14.5); WHITE BLOOD COUNT 14.2 10^3/uL (4.3-11.0)
[2017-10-04 03:51] LABS: ALANINE AMINOTRANSFERASE 10 U/L (0-55); ALBUMIN 1.8 GM/DL (3.2-4.5); ALKALINE PHOSPHATASE 80 U/L (40-136); BILIRUBIN,TOTAL 0.9 MG/DL (0.1-1.0); BUN/CREATININE RATIO 21; CALCIUM 7.3 MG/DL (8.5-10.1); CARBON DIOXIDE 29 MMOL/L (21-32); CHLORIDE 101 MMOL/L (98-107); CREATININE SERUM 0.82 MG/DL (0.60-1.30); GFR ESTIMATED > 60; GLUCOSE 220 MG/DL (70-105); MAGNESIUM 2.6 MG/DL (1.8-2.4); PHOSPHORUS 2.8 MG/DL (2.3-4.7); POTASSIUM 2.8 MMOL/L (3.6-5.0); SODIUM 143 MMOL/L (135-145); TOTAL PROTEIN 5.3 GM/DL (6.4-8.2)
[2017-10-04] MEDS: MAGNESIUM 1 GM/100 ML IVPB 100 ML IV SCH (04:03)
[2017-10-04] MEDS: KCL 20 MEQ TAB (K-DUR) PO SCH (04:09)
[2017-10-04] MEDS ORDERED: KCL 20 MEQ TAB (K-DUR) PO ONE ×3 (04:15→08:15)
--- NOTE | 2017-10-04 06:49 | Pulmonary Consultation ---
History of Present Illness History of Present Illness Date of Consultation 10/04/17 06:44 Time Seen by Provider: 06:44 Date of Admission History of Present Illness 82yo WM poor historian presented to ED secondary to worsening SOB, fever, weakness and s/p fall that started about 2 months ago. PT has lost about 20lbs. PT did not hit her head. PT was found to have a large left hilar mass upon admission. Allergies and Home Medications Allergies Coded Allergies: No Known Drug Allergies (Unverified , 10/03/17) Home Medications Amlodipine Besylate 5 Mg Tablet, 10 MG PO DAILY, (Reported) TAKES 2 (5MG) TABLETS Atenolol 50 Mg Tablet, 50 MG PO DAILY, (Reported) Cyanocobalamin (Vitamin B-12) 1,000 Mcg Tablet, 1,000 MCG PO DAILY, (Reported) Ezetimibe 10 Mg Tablet, 10 MG PO HS, (Reported) Furosemide 40 Mg Tablet, 40 MG PO DAILY, (Reported) Levothyroxine Sodium 125 Mcg Tablet, 125 MCG PO DAILY, (Reported) Omeprazole 20 Mg Capsule.dr, 20 MG PO DAILY PRN for HEARTBURN, (Reported) Past Nupbwjh-Ouktmq-Iinlgi Hx Past Med/Social Hx: Reviewed Nursing Past Med/Soc Hx Patient Social History Alcohol Use: Denies Use Recreational Drug Use: No Smoking Status: Never a Smoker Recent Foreign Travel: No Contact w/Someone Who Travel: No Recent Infectious Disease Expo: No Recent Hopitalizations: No Immunizations Up To Date Date of Pneumonia Vaccine: Oct 03, 2012 Seasonal Allergies Seasonal Allergies: No Past Medical History Surgeries: Yes (BILAT HIP, CHOLECYSTECTOMY, EYE SX) Eye Surgery, Gallbladder, Hysterectomy, Orthopedic Respiratory: No Cardiac: Yes Hypertension Neurological: No Genitourinary: No Gastrointestinal: No Musculoskeletal: Yes (POLIO CHILD) Endocrine: Yes (DIABETES) HEENT: Yes Cataract Cancer: No Psychosocial: No Integumentary: No Blood Disorders: No Adverse Reaction/Blood Tranf: No Family Medical History Reviewed Nursing Family Hx No Pertinent Family Hx Review of Systems Time Seen by Provider: 09:28 Sepsis Event Evaluation Height, Weight, BMI Height: 5'5.00" Weight: 135lbs. 3.0oz. [id number]; 21.5 BMI Method:Stated Exam Exam Vital Signs Date Time Temp Pulse Resp B/P (MAP) Pulse Ox O2 Delivery O2 Flow Rate FiO2 10/04/17 06:00 78 16 138/77 (97) 100 Room Air 10/04/17 05:00 75 28 137/81 (99) 98 Room Air 10/04/17 04:00 97.3 10/04/17 04:00 96 Room Air 10/04/17 04:00 75 23 131/72 (91) 95 Room Air 10/04/17 03:00 74 16 137/66 (89) 98 Room Air 10/04/17 02:00 78 12 131/65 (87) 96 Room Air 10/04/17 01:00 75 10/04/17 01:00 75 15 138/70 (92) 96 Room Air 10/04/17 00:00 95 Room Air 10/04/17 00:00 97.1 10/04/17 00:00 77 15 135/65 (88) 97 Room Air 10/03/17 23:00 77 15 133/63 (86) 100 Room Air 10/03/17 22:00 83 21 128/72 (90) 100 Room Air 10/03/17 21:59 95 Room Air 10/03/17 21:00 72 14 128/69 (88) 97 Room Air 10/03/17 20:04 Nasal Cannula 2.00 10/03/17 20:00 91 12 138/82 (100) 100 Room Air 10/03/17 20:00 95 Room Air 10/03/17 20:00 97.1 10/03/17 19:35 81 93 10/03/17 19:00 97 10/03/17 19:00 84 14 137/81 (99) 97 Room Air 10/03/17 18:00 78 21 141/72 (95) 93 Room Air 10/03/17 17:45 76 15 140/70 (93) 98 Room Air 10/03/17 17:30 85 10 144/74 (97) 96 Room Air 10/03/17 17:15 73 31 135/67 (89) 94 Room Air 10/03/17 17:00 82 15 135/72 (93) 95 Room Air 10/03/17 16:45 78 15 145/60 (88) 93 Room Air 10/03/17 16:30 95 Room Air 10/03/17 16:23 84 10/03/17 16:15 97.7 87 23 143/93 (110) 95 Room Air 10/03/17 16:10 96.0 78 20 129/65 (86) 98 Nasal Cannula 2.00 10/03/17 13:30 100.2 10/03/17 12:55 98 Nasal Cannula 2.00 10/03/17 12:55 100.2 93 124/68 (86) 98 Nasal Cannula 2.00 I & O 10/04/17 07:00 Intake Total 2623 ml Output Total 1225 ml Balance 1398 ml Height & Weight Height: 5'5.00" Weight: 135lbs. 3.0oz. 61.898633cf; 21.5 BMI Method:Stated General Appearance: Mild Distress, Thin HEENT: PERRL/EOMI, Pharynx Normal Neck: Non Tender, Supple Respiratory: No Respiratory Distress, Crackles Cardiovascular: No Murmur, Tachycardia Capillary Refill: Less Than 3 Seconds Gastrointestinal: non tender, soft, no organomegaly; No hepatomegaly, No spleenomegaly Extremity: Normal Capillary Refill, Pedal Edema (2+ to the mid tibia bilateral) Neurologic/Psychiatric: Alert, Motor Weakness (global) Results Lab Laboratory Tests 10/03/17 13:00 10/03/17 17:15 10/04/17 03:15 Assessment/Plan Assessment/Plan Septic shock secondary to Pneumonia vs UTI -IVF -Continue Vanco and Zosyn -Jarvis cultures pending. Large left mediastinal lung mass. -Will schedule bronchoscopy with fluoroscopy for morning Severe hypokalemia -replace and recheck Left leg wound/decub ulcer -Tissue trauma Malnutrition -Monitor -Give multi Vitamin and Vit K secondary to elevated INR. It does not appear pt has been on any anticoagulation DM, HTN ALLI JONES DO Oct 04, 2017 06:49
[2017-10-04] MEDS ORDERED: VITAMIN K 1 MG/ML ORAL SOLN 1 ML SYRINGE PO NR (07:15)
[2017-10-04] MEDS ORDERED: PHARMACY TO DOSE IV SCH (07:15)
--- NOTE | 2017-10-04 07:40 | Diagnostic Imaging Report ---
PATIENT HISTORY: Dyspnea. TECHNIQUE: Single frontal view of the chest. COMPARISON: 10/03/2017. FINDINGS: There is persistent elevation of the right hemidiaphragm, with hazy opacities in the right upper lung and left lung base, which appear stable. The cardiac silhouette is stable in size. The right jugular line tip appear stable. Prominent left perihilar mass is noted. There is diffuse osteopenia. No pneumothorax or pleural effusion is seen. IMPRESSION: 1. Stable large left perihilar mass. 2. Hazy opacities in the right upper lobe and left lung base, may represent chronic scarring or infiltrate. Dictated by: Dictated on workstation # [id number]
[2017-10-04] MEDS ORDERED: VANCOMYCIN 1250 MG/NS 250 ML IVPB IV NR ×2 (07:49)
[2017-10-04] MEDS ORDERED: PIPERACILLIN SODIUM/TAZOBACTAM 4.5 GM in D5W 100 ML IVPB 100 ML IV NR (08:00)
[2017-10-04] MEDS: RT-ALBUTEROL SULF 2.5 MG/3 ML PRE-MIX VIAL INH SCH ×2 (08:21→18:59)
[2017-10-04] MEDS ORDERED: NS IV 500 ML 500 ML ONE (09:40)
[2017-10-04] MEDS ORDERED: NS IV 500 ML 500 ML IV ONE ×2 (10:14→10:15)
[2017-10-04] MEDS: LACTATED RINGERS 1,000 ML IV SCH ×3 (10:31→22:34)
--- NOTE | 2017-10-04 11:13 | Wound Care Assessment ---
Wound Care Assessment Date Seen by Provider: Oct 04, 2017 Time Seen by Provider: 10:45 Chief Complaint Lesion of L calf. HPI The patient is a pleasant 82 year old female admitted for sepsis, noted to have a large lung mass in a non-smoker, with a ten year history of a non-healing ulcer of the L calf. Moderate pain in the L calf. She has a history of polio, affecting her L leg, which is shorter. The ulcer appears atypical and will need a biopsy for histology to rule out squamous cell carcinoma, when the patient is transferred out of ICU. We will dress with Xeroform in the meantime. Past Medical History: Admits Heart Disease Smoking Status: Never a Smoker Recreational Drug Use: No Alcohol Use: Denies Use Review of Systems Pulmonary: Dyspnea Cardiovascular: Chest Pain Exam Vital Signs Date Time Temp Pulse Resp B/P (MAP) Pulse Ox O2 Delivery O2 Flow Rate FiO2 10/04/17 10:00 90 11 113/64 (80) 97 Room Air 10/04/17 08:18 97.6 10/03/17 20:04 2.00 Capillary Refill : Less Than 3 Seconds General Appearance: thin Respiratory: no respiratory distress Back: other (No open lesion of the sacral area.) Skin: other (L anterior calf -- 3.5 x 2.8 x 0.1 cm, base uniform white tissue of uncertain nature. Periwound is inflamed.) Results Laboratory Tests 10/03/17 13:00: White Blood Count 14.2H, Red Blood Count 3.48L, Hemoglobin 8.1L, Hematocrit 29L , Mean Corpuscular Volume 82, Mean Corpuscular Hemoglobin 23L, Mean Corpuscular Hemoglobin Concent 28L, Red Cell Distribution Width 19.4H, Platelet Count 382, Mean Platelet Volume 9.1, Neutrophils (%) (Auto) 90H, Lymphocytes (%) (Auto) 5L , Monocytes (%) (Auto) 5, Eosinophils (%) (Auto) 0, Basophils (%) (Auto) 0, Neutrophils # (Auto) 12.7H, Lymphocytes # (Auto) 0.7L, Monocytes # (Auto) 0.8, Eosinophils # (Auto) 0.0, Basophils # (Auto) 0.0, Neutrophils % (Manual) 90, Lymphocytes % (Manual) 4, Monocytes % (Manual) 2, Eosinophils % (Manual) 1, Basophils % (Manual) 0, Band Neutrophils 3, Hypochromasia MODERATE, Anisocytosis MARKED, Spherocytes SLIGHT, Prothrombin Time 19.8H, INR Comment 1.7H, Activated Partial Thromboplast Time 27, Sodium Level 146H, Potassium Level 2.3*L, Chloride Level 97L, Carbon Dioxide Level 34H, Anion Gap 15H, Blood Urea Nitrogen 17, Creatinine 0.96, Estimat Glomerular Filtration Rate 56, BUN/ Creatinine Ratio 18, Glucose Level 189H, Lactic Acid Level 5.05*H, Calcium Level 7.8L, Corrected Calcium 9.6, Total Bilirubin 1.5H, Aspartate Amino Transf (AST/SGOT) 13, Alanine Aminotransferase (ALT/SGPT) 6, Alkaline Phosphatase 84, Total Protein 5.6L, Albumin 1.8L 10/03/17 13:15: Urine Color YELLOW, Urine Clarity SLIGHTLY CLOUDY, Urine pH 6, Urine Specific [place] 1.015L, Urine Protein 2+H, Urine Glucose (UA) NEGATIVE, Urine Ketones 1+ H, Urine Nitrite NEGATIVE, Urine Bilirubin 1+H, Urine Urobilinogen 4H, Urine Leukocyte Esterase 1+H, Urine RBC (Auto) 4+H, Urine RBC 0-2, Urine WBC RARE, Urine Squamous Epithelial Cells 2-5, Urine Crystals NONE, Urine Bacteria NEGATIVE, Urine Casts NONE, Urine Mucus SMALLH, Urine Culture Indicated NO 10/03/17 15:05: Lactic Acid Level 2.29*H 10/03/17 16:36: Glucometer 174H 10/03/17 17:15: Sodium Level 145, Potassium Level 2.0*L, Chloride Level 102, Carbon Dioxide Level 34H, Anion Gap 9, Blood Urea Nitrogen 16, Creatinine 0.79, Estimat Glomerular Filtration Rate > 60, BUN/Creatinine Ratio 20, Glucose Level 179H, Calcium Level 6.9L, Corrected Calcium 8.7, Magnesium Level 1.1L, Total Bilirubin 1.4H, Aspartate Amino Transf (AST/SGOT) 14, Alanine Aminotransferase ( ALT/SGPT) 8, Alkaline Phosphatase 73, Total Protein 5.0L, Albumin 1.7L 10/03/17 18:05: Lactic Acid Level 1.38 10/04/17 03:15: Sodium Level 143, Potassium Level 2.8L, Chloride Level 101, Carbon Dioxide Level 29, Anion Gap 13, Blood Urea Nitrogen 17, Creatinine 0.82, Estimat Glomerular Filtration Rate > 60, BUN/Creatinine Ratio 21, Glucose Level 220H, Calcium Level 7.3L, Corrected Calcium 9.1, Magnesium Level 2.6H, Total Bilirubin 0.9, Aspartate Amino Transf (AST/SGOT) 12, Alanine Aminotransferase ( ALT/SGPT) 10, Alkaline Phosphatase 80, Total Protein 5.3L, Albumin 1.8L, White Blood Count 14.2H, Red Blood Count 3.11L, Hemoglobin 7.4L, Hematocrit 25L, Mean Corpuscular Volume 81, Mean Corpuscular Hemoglobin 24L, Mean Corpuscular Hemoglobin Concent 30L, Red Cell Distribution Width 19.2H, Platelet Count 277, Mean Platelet Volume 9.1, Neutrophils (%) (Auto) 90H, Lymphocytes (%) (Auto) 6L , Monocytes (%) (Auto) 4, Eosinophils (%) (Auto) 0, Basophils (%) (Auto) 0, Neutrophils # (Auto) 12.8H, Lymphocytes # (Auto) 0.9L, Monocytes # (Auto) 0.5, Eosinophils # (Auto) 0.0, Basophils # (Auto) 0.0, Phosphorus Level 2.8 Microbiology 10/03/17 Urine Culture - Final, Complete NO GROWTH Microbiology 10/03/17 Urine Culture - Final, Complete NO GROWTH Assessment/Plan/Dx 1. L calf lesion, atypical. 2. Venous insufficiency, L leg. 3. Chest mass. Plan: Will dress with Xeroform, and plan biopsy of L calf lesion when the patient is stable enough to go to floor. COREEN GREGG MD Oct 04, 2017 11:13
[2017-10-04] MEDS ORDERED: LEVO125T6 PO (11:50)
[2017-10-04] MEDS ORDERED: EZET10TA5 PO (11:50)
[2017-10-04] MEDS ORDERED: OMEP20CA12 PO (11:50)
[2017-10-04] MEDS ORDERED: AMLO5TAB4 PO (11:50)
[2017-10-04] MEDS ORDERED: CYAN10006 PO (11:50)
[2017-10-04] MEDS ORDERED: ATEN50TA PO (11:50)
[2017-10-04] MEDS ORDERED: FURO40TA4 PO (11:53)
[2017-10-04 12:32] LABS: BASOPHILS % (AUTO) 0 % (0-10); EOSINOPHILS % (AUTO) 0 % (0-10); HEMATOCRIT 25 % (35-52); HEMOGLOBIN 7.2 G/DL (11.5-16.0); LYMPHOCYTES # (AUTO) 0.7 X 10^3 (1.0-4.0); LYMPHOCYTES % (AUTO) 5 % (12-44); MEAN CORPUSCULAR HEMOGLOBIN 24 PG (25-34); MEAN CORPUSCULAR HGB CONC 29 G/DL (32-36); MEAN CORPUSCULAR VOLUME 81 FL (80-99); MEAN PLATELET VOLUME 9.4 FL (7.4-10.4); MONOCYTES # (AUTO) 0.6 X 10^3 (0.0-1.0); MONOCYTES % (AUTO) 4 % (0-12); NEUTROPHILS # (AUTO) 13.3 X 10^3 (1.8-7.8); NEUTROPHILS % (AUTO) 91 % (42-75); PLATELET COUNT 284 10^3/uL (130-400); RED BLOOD COUNT 3.05 10^6/uL (4.35-5.85); RED CELL DISTRIBUTION WIDTH 19.2 % (10.0-14.5); WHITE BLOOD COUNT 14.5 10^3/uL (4.3-11.0)
[2017-10-04 12:52] LABS: ALANINE AMINOTRANSFERASE 9 U/L (0-55); ALBUMIN 1.7 GM/DL (3.2-4.5); ALKALINE PHOSPHATASE 88 U/L (40-136); BILIRUBIN,TOTAL 0.6 MG/DL (0.1-1.0); BUN/CREATININE RATIO 22; CALCIUM 7.3 MG/DL (8.5-10.1); CARBON DIOXIDE 26 MMOL/L (21-32); CHLORIDE 104 MMOL/L (98-107); CREATININE SERUM 0.79 MG/DL (0.60-1.30); GFR ESTIMATED > 60; GLUCOSE 230 MG/DL (70-105); POTASSIUM 3.9 MMOL/L (3.6-5.0); SODIUM 142 MMOL/L (135-145); TOTAL PROTEIN 5.1 GM/DL (6.4-8.2)
[2017-10-04] MEDS: PIPERACILLIN SODIUM/TAZOBACTAM 4.5 GM in D5W 100 ML IVPB 100 ML IV SCH ×2 (13:44→22:35)
[2017-10-04] MEDS ORDERED: NS IV 500 ML 500 ML IV SCH (18:30)
--- NOTE | 2017-10-04 19:17 | Progress Note (SOAP) ---
Subjective Subjective/Events-last exam Patient states that she feels better this AM. Tolerating PO diet. BM last night. Review of Systems Date Seen by Provider: Oct 04, 2017 Time Seen by Provider: 09:35 General: No Chills; Malaise Pulmonary: No Dyspnea, No Cough Cardiovascular: No: Chest Pain, Palpitations Gastrointestinal: No: Nausea, Vomiting, Abdominal Pain, Diarrhea, Constipation Neurological: Weakness Focused Exam Lactate Level 10/03/17 13:00: Lactic Acid Level 5.05*H 10/03/17 15:05: Lactic Acid Level 2.29*H 10/03/17 18:05: Lactic Acid Level 1.38 Objective Exam Last Set of Vital Signs Vital Signs Date Time Temp Pulse Resp B/P (MAP) Pulse Ox O2 Delivery O2 Flow Rate FiO2 10/04/17 19:00 100 Room Air 10/04/17 18:00 111 30 108/88 (95) 10/04/17 16:05 97.8 10/03/17 20:04 2.00 Capillary Refill : Less Than 3 Seconds I&O Intake and Output 10/04/17 00:00 Intake Total 2323 ml Output Total 900 ml Balance 1423 ml Intake Oral 0 ml IV Total 2323 ml Output Urine Total 900 ml Daily Weight Change Yes, 14-23 lbs General: Alert, Oriented X3, Cooperative, No Acute Distress HEENT: PERRLA Lungs: Clear to Auscultation, Normal Air Movement Heart: Regular Rate, No Murmurs Abdomen: Normal Bowel Sounds, Soft, No Tenderness, No Hepatosplenomegaly, No Masses Extremities: Other (2+ pitting edema bilaterally) Skin: Other (Left leg wound bandaged) Neuro: Normal Speech, Cranial Nerves 3-12 NL Psych/Mental Status: Mental Status NL, Mood NL Results/Procedures Lab Laboratory Tests 10/04/17 03:15: White Blood Count 14.2H, Red Blood Count 3.11L, Hemoglobin 7.4L, Hematocrit 25L , Mean Corpuscular Volume 81, Mean Corpuscular Hemoglobin 24L, Mean Corpuscular Hemoglobin Concent 30L, Red Cell Distribution Width 19.2H, Platelet Count 277, Mean Platelet Volume 9.1, Neutrophils (%) (Auto) 90H, Lymphocytes (%) (Auto) 6L , Monocytes (%) (Auto) 4, Eosinophils (%) (Auto) 0, Basophils (%) (Auto) 0, Neutrophils # (Auto) 12.8H, Lymphocytes # (Auto) 0.9L, Monocytes # (Auto) 0.5, Eosinophils # (Auto) 0.0, Basophils # (Auto) 0.0, Sodium Level 143, Potassium Level 2.8L, Chloride Level 101, Carbon Dioxide Level 29, Anion Gap 13, Blood Urea Nitrogen 17, Creatinine 0.82, Estimat Glomerular Filtration Rate > 60, BUN/ Creatinine Ratio 21, Glucose Level 220H, Calcium Level 7.3L, Corrected Calcium 9.1, Phosphorus Level 2.8, Magnesium Level 2.6H, Iron Level 17L, Total Iron Binding Capacity 79L, Unsaturated Iron Binding Capacity 62, Transferrin % Saturation 22, Total Bilirubin 0.9, Aspartate Amino Transf (AST/SGOT) 12, Alanine Aminotransferase (ALT/SGPT) 10, Alkaline Phosphatase 80, Total Protein 5.3L, Albumin 1.8L 10/04/17 12:15: White Blood Count 14.5H, Red Blood Count 3.05L, Hemoglobin 7.2L, Hematocrit 25L , Mean Corpuscular Volume 81, Mean Corpuscular Hemoglobin 24L, Mean Corpuscular Hemoglobin Concent 29L, Red Cell Distribution Width 19.2H, Platelet Count 284, Mean Platelet Volume 9.4, Neutrophils (%) (Auto) 91H, Lymphocytes (%) (Auto) 5L , Monocytes (%) (Auto) 4, Eosinophils (%) (Auto) 0, Basophils (%) (Auto) 0, Neutrophils # (Auto) 13.3H, Lymphocytes # (Auto) 0.7L, Monocytes # (Auto) 0.6, Eosinophils # (Auto) 0.0, Basophils # (Auto) 0.0, Sodium Level 142, Potassium Level 3.9, Chloride Level 104, Carbon Dioxide Level 26, Anion Gap 12, Blood Urea Nitrogen 17, Creatinine 0.79, Estimat Glomerular Filtration Rate > 60, BUN/ Creatinine Ratio 22, Glucose Level 230H, Calcium Level 7.3L, Corrected Calcium 9.1, Total Bilirubin 0.6, Aspartate Amino Transf (AST/SGOT) 10, Alanine Aminotransferase (ALT/SGPT) 9, Alkaline Phosphatase 88, Total Protein 5.1L, Albumin 1.7L Microbiology 10/03/17 Blood Culture - Preliminary, Resulted Gram Positive Cocci 10/03/17 Urine Culture - Final, Complete NO GROWTH Radiology Date of Exam: 10/03/17 CT CHEST W PROCEDURE: CT chest with contrast only. TECHNIQUE: Multiple contiguous axial images were obtained through the chest after administration of intravenous contrast. INDICATION: Cough, fever COMPARISON: There are no previous CT chest examinations available for comparison. FINDINGS: The plain film examination of the chest performed earlier today at 1:23 PM noted a fullness in the left hilum raising the question of a neoplastic mass in this area. On this exam, there is indeed a sizable 5.4 x 6.6 x 6.1 CM heterogeneous mass along the medial aspect of the left upper lung. This mass should be considered neoplastic until proven otherwise. The heart is mildly enlarged. There are coronary calcifications evident. The aorta is not abnormally dilated and there is no sign of dissection. The pulmonary arteries were not well opacified and consequently difficult to assess for a pulmonary embolus. There is no mediastinal or hilar adenopathy. There are chronic pulmonary changes evident and there are coarse interstitial densities about both darryl and in both lung bases, particularly on the right. There is no obvious breast mass. The sections through the upper abdomen fail to show any sign of an acute abnormality. There are surgical clips about the gallbladder fossa consistent with a prior cholecystectomy. There appears to be a small collection of fluid in this area. This may be fluid within the bowel as opposed to a free fluid collection. Also, there is a 1.3 x 1.4 CM nodule associated with the medial nenita of the right adrenal gland. This may represent a benign process. The possibility that this is secondary to metastatic disease secondary to the large lung mass cannot be entirely excluded however. If further imaging is desired, PET CT would be recommended. The bone windows show no sign of a fracture or of a destructive lesion. IMPRESSION: 1. There is a large mass along the medial aspect of the left upper lobe. This should be considered neoplastic until proven otherwise. 2. There is cardiomegaly and coronary artery disease and chronic pulmonary disease. There is no acute cardiopulmonary abnormality noted otherwise. 3. The nodule associated with the right adrenal gland may represent a benign process. The possibility that this is neoplastic in nature cannot be entirely excluded. Recommendations as above. 4. The fluid collection in the right upper quadrant may be fluid within the bowel. If further study is desired, then a complete CT abdomen and pelvis exam should be obtained. Assessment/Plan Assessment/Plan (1) Septic shock Status: Acute Assessment & Plan: - Patient has completed 30 mg/kg fluids, VS stable, LA resolved - Started on Vanc/zosyn, blood culture pending 10/04: + blood cultures for gram (+) cocci, continue vancomycin, VS stable, labs improving (2) Pneumonia involving left lung Status: Acute Assessment & Plan: - Likely post obstructive 2/2 mass - Will consult Emma to see if patient is candidate for broch vs Interventional Rad for bx Qualifiers: Qualified Codes: J18.1 - Lobar pneumonia, unspecified organism (3) Mass of left lung Status: Acute Assessment & Plan: 10/04: Plan for bronch on with Dr Carter (4) Wound of left leg Status: Acute Assessment & Plan: - Consult wound care - Concerned for poor vascular supply Qualifiers: Qualified Codes: S81.802A - Unspecified open wound, left lower leg, initial encounter (5) Localized swelling of both lower extremities Status: Chronic (6) Decubital ulcer Status: Chronic Assessment & Plan: - Wound care Qualifiers: Qualified Codes: L89.159 - Pressure ulcer of sacral region, unspecified stage (7) Diabetes Status: Chronic Assessment & Plan: - SSI, A1c pending Qualifiers: Qualified Codes: E11.9 - Type 2 diabetes mellitus without complications (8) HTN (hypertension) Status: Chronic Assessment & Plan: - Will hold bp meds due to shock at this time, will continue to monitor Qualifiers: Qualified Codes: I10 - Essential (primary) hypertension (9) Severe protein-calorie malnutrition Status: Chronic Assessment & Plan: 10/04: Add Glucerna to diet (10) Elevated INR Status: Acute Assessment & Plan: - will repeat in AM (11) Elevated bilirubin Status: Resolved Assessment & Plan: - Repeat in AM (12) Normocytic anemia Status: Chronic Assessment & Plan: - Will add iron panel, repeat in AM 10/04: Mixed Iron deficiency with chronic disease (13) Hypokalemia Status: Resolved (14) Hypomagnesemia Status: Resolved Clinical Quality Measures DVT/VTE Risk/Contraindication: Risk Factor Score Per Nursin RFS Level Per Nursing on Admit: 4+=Very High GENE HERNANDEZ MD Oct 04, 2017 19:17
[2017-10-04] MEDS ORDERED: ALBUMIN 25% 25 GM/100 ML 200 ML IV ONE ×2 (22:41→23:30)
[2017-10-05] VITALS (29 sets, daily range): BP systolic 96–158; BP diastolic 59–111
[2017-10-05] MEDS ORDERED: NS IV 500 ML 500 ML IV SCH (00:45)
[2017-10-05] MEDS ORDERED: FUROSEMIDE 40 MG/4 ML INJ (LASIX) ONE (03:08)
[2017-10-05] MEDS ORDERED: FUROSEMIDE 40 MG/4 ML INJ (LASIX) IVP ONE ×2 (03:10→04:15)
[2017-10-05] MEDS ORDERED: morphine INJ 4 MG/ML 1 ML (VIAL/SYRINGE) IVP PRN (04:15)
[2017-10-05 04:42] LABS: BASOPHILS % (AUTO) 0 % (0-10); EOSINOPHILS % (AUTO) 0 % (0-10); HEMATOCRIT 28 % (35-52); HEMOGLOBIN 8.2 G/DL (11.5-16.0); LYMPHOCYTES # (AUTO) 0.7 X 10^3 (1.0-4.0); LYMPHOCYTES % (AUTO) 6 % (12-44); MEAN CORPUSCULAR HEMOGLOBIN 25 PG (25-34); MEAN CORPUSCULAR HGB CONC 30 G/DL (32-36); MEAN CORPUSCULAR VOLUME 84 FL (80-99); MEAN PLATELET VOLUME 9.3 FL (7.4-10.4); MONOCYTES # (AUTO) 0.5 X 10^3 (0.0-1.0); MONOCYTES % (AUTO) 5 % (0-12); NEUTROPHILS # (AUTO) 9.7 X 10^3 (1.8-7.8); NEUTROPHILS % (AUTO) 89 % (42-75); PLATELET COUNT 251 10^3/uL (130-400); RED BLOOD COUNT 3.28 10^6/uL (4.35-5.85); RED CELL DISTRIBUTION WIDTH 19.2 % (10.0-14.5)
[2017-10-05 05:09] LABS: ALANINE AMINOTRANSFERASE 6 U/L (0-55); ALBUMIN 2.8 GM/DL (3.2-4.5); ALKALINE PHOSPHATASE 94 U/L (40-136); BILIRUBIN,TOTAL 0.9 MG/DL (0.1-1.0); BUN/CREATININE RATIO 20; CARBON DIOXIDE 25 MMOL/L (21-32); CHLORIDE 105 MMOL/L (98-107); CREATININE SERUM 0.83 MG/DL (0.60-1.30); GFR ESTIMATED > 60; GLUCOSE 298 MG/DL (70-105); POTASSIUM 3.6 MMOL/L (3.6-5.0); SODIUM 143 MMOL/L (135-145); TOTAL PROTEIN 5.7 GM/DL (6.4-8.2)
--- NOTE | 2017-10-05 05:09 | Pulmonary Progress Note ---
Subjective Time Seen by Provider: 05:27 Subjective/Events-last exam Pt had respiratory failure throughout the night. Sepsis Event Evaluation Height, Weight, BMI Height: 5'5.00" Weight: 135lbs. 3.0oz. [id number]; 21.5 BMI Method:Stated Focused Exam Lactate Level 10/03/17 13:00: Lactic Acid Level 5.05*H 10/03/17 15:05: Lactic Acid Level 2.29*H 10/03/17 18:05: Lactic Acid Level 1.38 Exam Exam Vital Signs Date Time Temp Pulse Resp B/P (MAP) Pulse Ox O2 Delivery O2 Flow Rate FiO2 10/05/17 04:00 142 30 155/98 (117) 99 NIV Bilevel 50.00 10/05/17 03:20 98.3 135 136/86 NIV Bilevel 50 10/05/17 03:00 141 37 149/98 (115) 100 NIV Bilevel 50.00 10/05/17 02:52 146 41 100 50.00 10/05/17 02:51 NIV Bilevel 50.00 10/05/17 02:00 129 35 135/78 (97) 97 Nasal Cannula 2.00 10/05/17 01:15 Nasal Cannula 2.00 10/05/17 01:07 98.7 115 21 128/64 93 Room Air 10/05/17 01:00 114 44 121/59 (79) 86 Room Air 10/05/17 01:00 119 10/05/17 00:52 98.6 117 22 106/81 94 Room Air 10/05/17 00:00 94 Room Air 10/05/17 00:00 116 45 106/81 (89) 90 Room Air 10/04/17 23:00 115 33 130/70 (90) 96 Room Air 10/04/17 22:00 121 27 139/66 (90) 94 Room Air 10/04/17 21:00 123 31 136/66 (89) 99 Room Air 10/04/17 20:00 116 35 133/63 (86) 95 Room Air 10/04/17 20:00 96 Room Air 10/04/17 19:00 107 27 129/73 (91) 100 Room Air 10/04/17 19:00 100 Room Air 10/04/17 19:00 117 10/04/17 18:00 111 30 108/88 (95) 99 Room Air 10/04/17 17:00 113 35 120/66 (84) 96 Room Air 10/04/17 16:05 96 Room Air 10/04/17 16:05 97.8 Room Air 10/04/17 16:00 101 27 133/70 (91) 92 Room Air 10/04/17 15:00 102 28 119/70 (86) 98 Room Air 10/04/17 14:00 99 18 117/90 (99) 96 Room Air 10/04/17 13:00 101 31 138/77 (97) 100 Room Air 10/04/17 13:00 98 10/04/17 12:29 100 Room Air 10/04/17 12:28 97.9 Room Air 10/04/17 12:00 93 15 125/80 (95) 97 Room Air 10/04/17 11:00 101 19 129/62 (84) 98 Room Air 10/04/17 10:00 90 11 113/64 (80) 97 Room Air 10/04/17 09:00 96 28 115/86 (96) 98 Room Air 10/04/17 08:21 100 Room Air 10/04/17 08:18 Room Air 10/04/17 08:18 97.6 Room Air 10/04/17 08:00 91 19 120/90 (100) 99 Room Air 10/04/17 07:00 96 10/04/17 07:00 99 20 144/71 (95) 97 Room Air 10/04/17 06:00 78 16 138/77 (97) 100 Room Air I & O 10/05/17 07:00 Intake Total 3312.5 ml Output Total 315 ml Balance 2997.5 ml Height & Weight Height: 5'5.00" Weight: 135lbs. 3.0oz. [id number]; 21.5 BMI Method:Stated General Appearance: Moderate Distress, Thin HEENT: PERRL/EOMI, Pharynx Normal Neck: Non Tender, Supple Respiratory: No Respiratory Distress, Crackles Cardiovascular: No Murmur, Tachycardia Capillary Refill: Less Than 3 Seconds Gastrointestinal: non tender, soft, no organomegaly; No hepatomegaly, No spleenomegaly Extremity: Normal Capillary Refill, Pedal Edema (2+ to the mid tibia bilateral) Neurologic/Psychiatric: Alert, Motor Weakness (global) Skin: Normal Color, Warm/Dry Lymphatic: No Adenopathy Results Lab Laboratory Tests 10/03/17 13:00 10/03/17 17:15 10/04/17 03:15 10/04/17 12:15 10/05/17 04:30 Assessment/Plan Assessment/Plan Severe Sepsis secondary to Pneumonia vs UTI - BC Staphylococcus -Continue Vanco and Zosyn - until cultures are finalized Acute respiratory distress through the night -Check CTA, bilateral dopplers -Check EKG, troponins, BNP Hx of hypothyroid with thyroidectomy -Restart Synthroid Sinus tach -restart home atenolol Pulmonary edema -PT was given 80mg of lasix last night per EICU Anemia -Pt transfused 1 units PRBC per EICU Large left mediastinal lung mass. -bronchoscopy with fluoroscopy for morning Severe hypokalemia -replace Left leg wound/decub ulcer -Tissue trauma Malnutrition -Monitor -Give multi Vitamin and Vit K secondary to elevated INR. It does not appear pt has been on any anticoagulation DM, HTN ALLI JONES DO Oct 05, 2017 05:09
[2017-10-05] MEDS: MAGNESIUM 1 GM/100 ML IVPB 100 ML IV SCH (05:39)
[2017-10-05] MEDS: POTASSIUM CL 10MEQ/50ML IVPB 50 ML IV SCH ×5 (05:39→08:37)
[2017-10-05 05:55] LABS: ABG OXYGEN SATURATION 99 % (94-100); ABG PCO2 45 MMHG (35-45); ABG PH 7.43 (7.37-7.43); ABG PO2 103 MMHG (79-93); ABG TCO2 30.6 MMOL/L (21.0-31.0)
[2017-10-05] MEDS ORDERED: NS IV 1000 ML 1,000 ML ONE (05:55)
[2017-10-05 05:56] LABS: ALLENS TEST YES-POS; INSPIRED O2 50%; PATIENT TEMP 98.6; VENTILATOR NO
[2017-10-05] MEDS ORDERED: ALBUMIN 25% 25 GM/100 ML 100 ML IV SCH (06:00)
[2017-10-05] MEDS: PIPERACILLIN SODIUM/TAZOBACTAM 4.5 GM in D5W 100 ML IVPB 100 ML IV SCH ×3 (06:00→22:04)
[2017-10-05] MEDS ORDERED: LEVOTHYROXINE 125 MCG (LEVOTHROID) TABLET PO SCH (06:33)
[2017-10-05] MEDS: KCL 20 MEQ TAB (K-DUR) PO SCH (06:55)
[2017-10-05] MEDS: MULTIVIT W/MINERALS TAB (THERAGRAN M) PO SCH ×2 (07:00→08:24)
[2017-10-05] MEDS: RT-ALBUTEROL SULF 2.5 MG/3 ML PRE-MIX VIAL INH SCH ×2 (07:13→19:49)
[2017-10-05] MEDS: VANCOMYCIN 1 GM/NS 250 ML IVPB IV SCH ×2 (08:25)
[2017-10-05] MEDS: ATENOLOL 50 MG (TENORMIN) TAB PO SCH ×2 (08:25→09:00)
--- NOTE | 2017-10-05 08:36 | Diagnostic Imaging Report ---
INDICATION: Dyspnea. COMPARISON: 10/04/2017. FINDINGS: The heart size is normal. There is a persistent large left perihilar mass. There has been an interval increase in the central pulmonary venous congestion. There is also some patchy bibasilar atelectasis and/or pneumonitis, right greater than left. There is no pneumothorax. The mediastinum is unremarkable. The right internal jugular central venous catheter remains in place. IMPRESSION: Increasing central pulmonary venous congestion as well as increasing bibasilar atelectasis and/or pneumonitis. Unchanged large left hilar mass. Dictated by: Dictated on workstation # [id number]
--- NOTE | 2017-10-05 09:11 | Diagnostic Imaging Report ---
PROCEDURE: US Venous Lower Ext Jozef. TECHNIQUE: Multiple real-time grayscale images were obtained over the lower extremities in various projections, bilaterally. Additional duplex Doppler and color Doppler images were also obtained. INDICATION: Bilateral lower extreme swelling. FINDINGS: The common femoral, femoral, popliteal veins and tibial veins demonstrate normal response to compression, augmentation and Valsalva. There are no abnormal lower extremity fluid collections or masses. IMPRESSION: No evidence of deep venous thrombosis in either lower extremity. Dictated by: Dictated on workstation # [id number]
[2017-10-05] MEDS ORDERED: RECEIVED CONTRAST (Hold Metformin) IV SCH (09:30)
[2017-10-05] MEDS ORDERED: IOHEXOL 350 MG/ML 100 ML (OMNIPAQUE 350) VIAL IV ONE (09:30)
[2017-10-05] MEDS ORDERED: NS 250 ML (IVPB) BAG IV ONE (09:30)
--- NOTE | 2017-10-05 11:13 | Diagnostic Imaging Report ---
PROCEDURE: CT angiography of the chest with contrast. TECHNIQUE: Multiple contiguous axial images were obtained through the chest after uneventful bolus administration of intravenous contrast. Reconstructed CTA MIP acquisitions were also performed. INDICATION: Respiratory distress The recent CT chest exam performed on 10/03/17 noted a large mass in the left upper lung but failed to show any sign of an acute cardiopulmonary abnormality. The plain film examination of the chest performed earlier today at 3:01 AM suggested pulmonary edema and bibasilar atelectasis and/or pneumonitis. On this exam those findings are again evident. In the interval since the prior study bibasal pneumonia/atelectasis and bilateral pleural effusions have developed. The fluid in the left lung base measures 1.5 CM maximum depth of fluid in the right lung base is estimated at 1.1 CM. There are also faint groundglass densities in both lungs and these may be secondary to pulmonary edema. The heart itself is stable in size when compared to the prior exam. The main pulmonary arteries are well opacified. There is no defect to suggest a pulmonary embolus. However there does appear to be a filling defect within one of the branches of the pulmonary arteries to the right lower lobe. While this finding could be secondary to flow phenomena the possibility that this is related to a pulmonary embolus cannot be entirely excluded. There is no other definite defect to indicate a pulmonary embolus. The aorta is unchanged when compared to the prior exam. The large mass in the left upper lung seen previously is again evident and no different. The sections through the upper abdomen fail to show any sign of an acute abnormality. The bone windows are unremarkable for a fracture or for a destructive lesion. IMPRESSION: 1. The appearance of the chest has worsened since the prior study as bibasal pneumonia/atelectasis and bilateral pleural effusions have developed. There also appears to an element of pulmonary congestion present. 2. The defect within one of the branches of the pulmonary artery to the right lung base is suspicious but not conclusive for pulmonary embolus. Clinical followup is recommended. 3. These results were discussed with Dr. Robert Carter. Dictated by: Dictated on workstation # [id number]
[2017-10-05] MEDS: morphine INJ 4 MG/ML 1 ML (VIAL/SYRINGE) IVP PRN (14:22)
--- NOTE | 2017-10-05 14:42 | Progress Note (SOAP) ---
[facility] 10/05/17 1442: Subjective Subjective/Events-last exam Pt reported that she is not having any SOB when she is on oxygen. She reported to be confused as far as what is going on with her during the hospitalization. I attempted to repeat the explanation 3 times and she somewhat understood it in the end. She had no other acute concerns this morning. Review of Systems Time Seen by Provider: 11:30 General: No Chills, No Night Sweats Pulmonary: No Dyspnea Cardiovascular: No: Chest Pain Gastrointestinal: No: Nausea, Vomiting Genitourinary: No Dysuria Focused Exam Lactate Level 10/03/17 13:00: Lactic Acid Level 5.05*H 10/03/17 15:05: Lactic Acid Level 2.29*H 10/03/17 18:05: Lactic Acid Level 1.38 Respiratory: Lungs Clear, Normal Breath Sounds, No Accessory Muscle Use Cardiovascular: Regular Rate, Rhythm, No Edema, No Murmur, Normal Peripheral Pulses Skin: ecchymosis (over R wrist d/t IV ), other (L leg lesion) Objective Exam Last Set of Vital Signs Vital Signs Date Time Temp Pulse Resp B/P (MAP) Pulse Ox O2 Delivery O2 Flow Rate FiO2 10/05/17 14:30 112 24 96 40.00 10/05/17 12:00 131/90 (104) Nasal Cannula 10/05/17 04:00 98.4 10/05/17 04:00 50 Capillary Refill : Less Than 3 Seconds I&O Intake and Output 10/05/17 00:00 Intake Total 3612.5 ml Output Total 480 ml Balance 3132.5 ml Intake Oral 1050 ml IV Total 2562.5 ml Output Urine Total 480 ml General: Alert, No Acute Distress HEENT: Atraumatic, EOMI Neck: Supple Lungs: Clear to Auscultation, Normal Air Movement Heart: Regular Rate, Normal S1, Normal S2, No Murmurs Abdomen: Normal Bowel Sounds, Soft, No Tenderness Extremities: Other (L charcot joint on LE, pale BL LE, BL LE edema 4+) Skin: Other (L leg skin lesion) Results/Procedures Lab Laboratory Tests 10/05/17 04:30: White Blood Count 11.0, Red Blood Count 3.28L, Hemoglobin 8.2L, Hematocrit 28L, Mean Corpuscular Volume 84, Mean Corpuscular Hemoglobin 25, Mean Corpuscular Hemoglobin Concent 30L, Red Cell Distribution Width 19.2H, Platelet Count 251, Mean Platelet Volume 9.3, Neutrophils (%) (Auto) 89H, Lymphocytes (%) (Auto) 6L , Monocytes (%) (Auto) 5, Eosinophils (%) (Auto) 0, Basophils (%) (Auto) 0, Neutrophils # (Auto) 9.7H, Lymphocytes # (Auto) 0.7L, Monocytes # (Auto) 0.5, Eosinophils # (Auto) 0.0, Basophils # (Auto) 0.0, Sodium Level 143, Potassium Level 3.6, Chloride Level 105, Carbon Dioxide Level 25, Anion Gap 13, Blood Urea Nitrogen 17, Creatinine 0.83, Estimat Glomerular Filtration Rate > 60, BUN/ Creatinine Ratio 20, Glucose Level 298H, Calcium Level 8.0L, Corrected Calcium 9.0, Total Bilirubin 0.9, Aspartate Amino Transf (AST/SGOT) 9, Alanine Aminotransferase (ALT/SGPT) 6, Alkaline Phosphatase 94, Troponin I < 0.30, B- Type Natriuretic Peptide 1203.3H, Total Protein 5.7L, Albumin 2.8L, Thyroid Stimulating Hormone (TSH) 7.15H 10/05/17 05:45: Blood Gas Puncture Site RIGHT RADIAL, Blood Gas Patient Temperature 98.6, Arterial Blood pH 7.43, Arterial Blood Partial Pressure CO2 45, Arterial Blood Partial Pressure O2 103H, Arterial Blood HCO3 29H, Arterial Blood Total CO2 30.6 , Arterial Blood Oxygen Saturation 99, Arterial Blood Base Excess 5.0H, Rene Test YES-POS, Blood Gas Ventilator Setting NO, Blood Gas Inspired Oxygen 50% 10/05/17 11:33: D-Dimer 2.36H 10/05/17 12:03: Troponin I < 0.30 10/05/17 13:31: Lab Scanned Report Transfusion Reaction Form Microbiology 10/03/17 Blood Culture - Preliminary, Resulted Staph, Coag Neg (CAR DROPPER) 10/03/17 MRSA Screen - Final, Complete MRSA not isolated 10/03/17 Urine Culture - Final, Complete NO GROWTH Radiology Date of Exam: 10/03/17 CT CHEST W PROCEDURE: CT chest with contrast only. TECHNIQUE: Multiple contiguous axial images were obtained through the chest after administration of intravenous contrast. INDICATION: Cough, fever COMPARISON: There are no previous CT chest examinations available for comparison. FINDINGS: The plain film examination of the chest performed earlier today at 1:23 PM noted a fullness in the left hilum raising the question of a neoplastic mass in this area. On this exam, there is indeed a sizable 5.4 x 6.6 x 6.1 CM heterogeneous mass along the medial aspect of the left upper lung. This mass should be considered neoplastic until proven otherwise. The heart is mildly enlarged. There are coronary calcifications evident. The aorta is not abnormally dilated and there is no sign of dissection. The pulmonary arteries were not well opacified and consequently difficult to assess for a pulmonary embolus. There is no mediastinal or hilar adenopathy. There are chronic pulmonary changes evident and there are coarse interstitial densities about both darryl and in both lung bases, particularly on the right. There is no obvious breast mass. The sections through the upper abdomen fail to show any sign of an acute abnormality. There are surgical clips about the gallbladder fossa consistent with a prior cholecystectomy. There appears to be a small collection of fluid in this area. This may be fluid within the bowel as opposed to a free fluid collection. Also, there is a 1.3 x 1.4 CM nodule associated with the medial nenita of the right adrenal gland. This may represent a benign process. The possibility that this is secondary to metastatic disease secondary to the large lung mass cannot be entirely excluded however. If further imaging is desired, PET CT would be recommended. The bone windows show no sign of a fracture or of a destructive lesion. IMPRESSION: 1. There is a large mass along the medial aspect of the left upper lobe. This should be considered neoplastic until proven otherwise. 2. There is cardiomegaly and coronary artery disease and chronic pulmonary disease. There is no acute cardiopulmonary abnormality noted otherwise. 3. The nodule associated with the right adrenal gland may represent a benign process. The possibility that this is neoplastic in nature cannot be entirely excluded. Recommendations as above. 4. The fluid collection in the right upper quadrant may be fluid within the bowel. If further study is desired, then a complete CT abdomen and pelvis exam should be obtained. Assessment/Plan Assessment/Plan Admission Status: Inpatient Order (span 2 midnights) Assessment & Plan Ms. Ng is a 82F w/ a PMH of polio, DM, cholecystectomy, hip surgery who was admitted with septic shock and found to have a post-obstructive mass on CT chest and subsequently found to have PE on CTA. Septic shock Pneumonia involving left lung Mass of left lung - Patient has completed 30 mg/kg fluids, VS stable, LA resolved\ - post obstructive mass on CT chest - Started on Vanc/zosyn on admission - BC grew coag neg gram positive cocci >Continue vanc >Pulmonology planning on doing bronch bx on 10/06, probably postponed in light of PE PE -Pt developed ARF on night of 10/04 requiring new O2 need -10/05 CTA showed PE >Lovenox Wound of left leg -wound care consulted >Concerned for possible SCC, planning for bx, not arranged yet Localized swelling of both lower extremities -received IV lasix on 10/04 >Continue to monitor Decubitus ulcer >Wound ulcer Diabetes -A1c this admission 7.0 >SSI HTN > holding meds d/t septic shock Severe protein-calorie malnutrition >Glucerna Elevated INR -on lovenox now for PE Elevated bilirubin-resolved Normocytic anemia -Iron studies showed ACD >CTM Hypokalemia and hypomagnesemia -replace and resolved FEN: LR, replace lytes PRN, diabetic diet PPx:lovenox Code: Full Dispo Continue admit to medicine (1) Septic shock Status: Acute (2) Pneumonia involving left lung Status: Acute Qualifiers: Qualified Codes: J18.1 - Lobar pneumonia, unspecified organism (3) Mass of left lung Status: Acute (4) Wound of left leg Status: Acute Qualifiers: Qualified Codes: S81.802A - Unspecified open wound, left lower leg, initial encounter (5) Localized swelling of both lower extremities Status: Chronic (6) Decubital ulcer Status: Chronic Qualifiers: Qualified Codes: L89.159 - Pressure ulcer of sacral region, unspecified stage (7) Diabetes Status: Chronic Qualifiers: Qualified Codes: E11.9 - Type 2 diabetes mellitus without complications (8) HTN (hypertension) Status: Chronic Qualifiers: Qualified Codes: I10 - Essential (primary) hypertension (9) Severe protein-calorie malnutrition Status: Chronic (10) Elevated INR Status: Acute (11) Elevated bilirubin Status: Resolved (12) Normocytic anemia Status: Chronic (13) Hypokalemia Status: Resolved (14) Hypomagnesemia Status: Resolved Clinical Quality Measures DVT/VTE Risk/Contraindication: Risk Factor Score Per Nursin RFS Level Per Nursing on Admit: 4+=Very High GENE HERNANDEZ MD 10/05/17 2218: Subjective Subjective/Events-last exam Patient had CTA this AM that showed possible PE vs pulmonary congestion and was started on anticoagulation. Review of Systems Date Seen by Provider: Oct 05, 2017 Assessment/Plan Assessment/Plan (1) Septic shock Status: Acute Assessment & Plan: - Continue antibiotics to cover for PNA (2) Pneumonia involving left lung Status: Acute Qualifiers: Qualified Codes: J18.1 - Lobar pneumonia, unspecified organism (3) Mass of left lung Status: Acute Assessment & Plan: - Plan for broch during this hospitalization, Dr Carter consulted (4) Diabetes Status: Chronic Assessment & Plan: - A1c pending Qualifiers: Qualified Codes: E11.9 - Type 2 diabetes mellitus without complications (5) Normocytic anemia Status: Chronic Assessment & Plan: - Patient transfused 1 units pRBCs (6) HTN (hypertension) Status: Chronic Assessment & Plan: Holding home BP meds due to sepsis Qualifiers: Qualified Codes: I10 - Essential (primary) hypertension (7) Severe protein-calorie malnutrition Status: Chronic (8) Elevated INR Status: Acute Assessment & Plan: - Given Vit K given elevated INR (9) Wound of left leg Status: Acute Qualifiers: Qualified Codes: S81.802A - Unspecified open wound, left lower leg, initial encounter (10) Localized swelling of both lower extremities Status: Chronic (11) Hypokalemia Status: Resolved (12) Hypomagnesemia Status: Resolved [facility] STUDENT Oct 05, 2017 14:42 GENE HERNANDEZ MD Oct 05, 2017 22:18
[2017-10-05] MEDS: LACTATED RINGERS 1,000 ML IV SCH (14:44)
[2017-10-05] MEDS: ENOXAPARIN 60 MG/0.6 ML (LOVENOX) SYR SC SCH (14:45)
[2017-10-05 16:37] LABS: ABG BASE EXCESS 6.6 MMOL/L (-2.5-2.5); ABG OXYGEN SATURATION 96 % (94-100); ABG PCO2 46 MMHG (35-45); ABG PH 7.44 (7.37-7.43); ABG PO2 73 MMHG (79-93); ABG TCO2 32.3 MMOL/L (21.0-31.0); INSPIRED O2 5L NC; PATIENT TEMP 97.9; VENTILATOR NO
[2017-10-05] MEDS ORDERED: inSUlin ASPART (NovoLOG) 1 UNIT/0.01 ML (CHARGE PER UNIT) ONE (16:50)
[2017-10-05] MEDS: inSUlin ASPART (NovoLOG) 1 UNIT/0.01 ML (CHARGE PER UNIT) SC SCH (16:53)
[2017-10-05] MEDS ORDERED: LEVOTHYROXINE 100 MCG INJ (SYNTHROID) VIAL IV SCH (17:30)
[2017-10-06] VITALS (22 sets, daily range): BP systolic 100–153; BP diastolic 60–98
[2017-10-06 04:10] LABS: BASOPHILS % (AUTO) 0 % (0-10); EOSINOPHILS # (AUTO) 0.1 10^3/uL (0.0-0.3); EOSINOPHILS % (AUTO) 1 % (0-10); HEMATOCRIT 29 % (35-52); HEMOGLOBIN 8.7 G/DL (11.5-16.0); LYMPHOCYTES # (AUTO) 1.5 X 10^3 (1.0-4.0); LYMPHOCYTES % (AUTO) 10 % (12-44); MEAN CORPUSCULAR HEMOGLOBIN 26 PG (25-34); MEAN CORPUSCULAR HGB CONC 30 G/DL (32-36); MEAN CORPUSCULAR VOLUME 85 FL (80-99); MEAN PLATELET VOLUME 9.5 FL (7.4-10.4); MONOCYTES # (AUTO) 0.8 X 10^3 (0.0-1.0); MONOCYTES % (AUTO) 5 % (0-12); NEUTROPHILS # (AUTO) 12.7 X 10^3 (1.8-7.8); NEUTROPHILS % (AUTO) 84 % (42-75); PLATELET COUNT 245 10^3/uL (130-400); RED BLOOD COUNT 3.41 10^6/uL (4.35-5.85)
[2017-10-06 04:35] LABS: ALANINE AMINOTRANSFERASE 6 U/L (0-55); ALBUMIN 2.6 GM/DL (3.2-4.5); ALKALINE PHOSPHATASE 93 U/L (40-136); BILIRUBIN,TOTAL 1.1 MG/DL (0.1-1.0); BUN/CREATININE RATIO 16; CALCIUM 8.3 MG/DL (8.5-10.1); CARBON DIOXIDE 28 MMOL/L (21-32); CHLORIDE 105 MMOL/L (98-107); CREATININE SERUM 0.79 MG/DL (0.60-1.30); GFR ESTIMATED > 60; GLUCOSE 138 MG/DL (70-105); MAGNESIUM 1.4 MG/DL (1.8-2.4); PHOSPHORUS 2.8 MG/DL (2.3-4.7); POTASSIUM 3.5 MMOL/L (3.6-5.0); SODIUM 146 MMOL/L (135-145); TOTAL PROTEIN 5.4 GM/DL (6.4-8.2)
[2017-10-06 04:49] LABS: HYPOCHROMASIA SLIGHT; LYMPHOCYTES % (MANUAL) 9 %; MONOCYTES % (MANUAL) 4 %; NEUTROPHILS % (MANUAL) 87 %
[2017-10-06] MEDS: POTASSIUM CL 10MEQ/50ML IVPB 50 ML IV SCH ×3 (04:55→06:05)
[2017-10-06] MEDS: MAGNESIUM 1 GM/100 ML IVPB 100 ML IV SCH ×3 (04:55→06:05)
[2017-10-06] MEDS: inSUlin ASPART (NovoLOG) 1 UNIT/0.01 ML (CHARGE PER UNIT) SC SCH ×3 (04:56→17:08)
[2017-10-06] MEDS: KCL 20 MEQ TAB (K-DUR) PO SCH (04:56)
[2017-10-06] MEDS: MULTIVIT W/MINERALS TAB (THERAGRAN M) PO SCH (04:56)
[2017-10-06] MEDS: ENOXAPARIN 60 MG/0.6 ML (LOVENOX) SYR SC SCH ×2 (05:06→17:09)
[2017-10-06] MEDS: PIPERACILLIN SODIUM/TAZOBACTAM 4.5 GM in D5W 100 ML IVPB 100 ML IV SCH (05:07)
[2017-10-06] MEDS: morphine INJ 4 MG/ML 1 ML (VIAL/SYRINGE) IVP PRN (05:22)
[2017-10-06] MEDS: RT-ALBUTEROL SULF 2.5 MG/3 ML PRE-MIX VIAL INH SCH ×4 (07:00→21:32)
--- NOTE | 2017-10-06 07:25 | Pulmonary Progress Note ---
Subjective Time Seen by Provider: 07:27 Subjective/Events-last exam pT has had increased SOB and tachycardia through the night. Sepsis Event Evaluation Height, Weight, BMI Height: 5'5.00" Weight: 145lbs. 3.0oz. [id number]; 21.5 BMI Method:Stated Focused Exam Lactate Level 10/03/17 13:00: Lactic Acid Level 5.05*H 10/03/17 15:05: Lactic Acid Level 2.29*H 10/03/17 18:05: Lactic Acid Level 1.38 Exam Exam Vital Signs Date Time Temp Pulse Resp B/P (MAP) Pulse Ox O2 Delivery O2 Flow Rate FiO2 10/06/17 06:56 86 20 92 40.00 10/06/17 06:00 92 17 122/72 (89) 93 NIV Bilevel 40.00 10/06/17 05:25 NIV Bilevel 40.00 10/06/17 05:23 Nasal Cannula 4.00 10/06/17 05:00 122 27 147/98 (114) 93 Nasal Cannula 2.00 10/06/17 04:00 111 31 137/81 (99) 95 Nasal Cannula 2.00 10/06/17 03:50 98.1 117 22 95 Nasal Cannula 2.00 10/06/17 03:50 93 Nasal Cannula 2.00 10/06/17 03:00 108 20 107/92 (97) 94 Nasal Cannula 2.00 10/06/17 03:00 105 27 107/92 (97) 94 Nasal Cannula 2.00 10/06/17 02:00 86 17 122/81 (95) 99 Nasal Cannula 2.00 10/06/17 01:17 89 10/06/17 01:00 99 20 118/74 (89) 100 Nasal Cannula 2.00 10/06/17 00:00 112 22 116/64 (81) 93 Nasal Cannula 2.00 10/05/17 23:55 93 Nasal Cannula 2.00 10/05/17 23:50 97.9 10/05/17 23:00 91 17 114/73 (87) 99 Nasal Cannula 2.00 10/05/17 22:00 92 14 122/70 (87) 99 Nasal Cannula 2.00 10/05/17 21:00 100 Nasal Cannula 3.00 10/05/17 21:00 92 17 109/65 (80) 100 Nasal Cannula 2.00 8/29/18 21:00 96 15 112/68 (83) 97 Nasal Cannula 3.00 10/05/17 20:00 99 Nasal Cannula 3.00 10/05/17 20:00 96 18 114/93 (100) 99 Nasal Cannula 3.00 10/05/17 20:00 96 114/93 (100) 10/05/17 19:50 100 Nasal Cannula 5.00 10/05/17 19:03 88 10/05/17 19:00 97.2 92 17 107/66 (80) 100 Nasal Cannula 3.00 10/05/17 18:00 91 17 100 Nasal Cannula 4.00 10/05/17 17:00 104 20 129/76 (93) 100 Nasal Cannula 4.00 10/05/17 16:00 97.6 10/05/17 16:00 101 15 96/66 (76) 100 Nasal Cannula 4.00 10/05/17 16:00 97 NIV Bilevel 4.00 10/05/17 15:00 105 17 96/66 (76) 98 Nasal Cannula 4.00 10/05/17 14:30 112 24 96 40.00 10/05/17 14:00 138 29 122/66 (84) 93 Nasal Cannula 4.00 10/05/17 13:00 101 20 125/96 (106) 100 Nasal Cannula 4.00 10/05/17 13:00 101 10/05/17 12:00 117 30 131/90 (104) 93 Nasal Cannula 4.00 10/05/17 12:00 97 NIV Bilevel 4.00 10/05/17 12:00 98.2 10/05/17 11:00 107 22 112/91 (98) 97 Nasal Cannula 4.00 10/05/17 10:00 110 22 112/97 (102) 100 Nasal Cannula 4.00 10/05/17 09:00 103 27 129/79 (96) 100 NIV Bilevel 50.00 10/05/17 08:00 98 15 134/88 (103) 100 NIV Bilevel 50.00 10/05/17 08:00 95 NIV Bilevel 50 I & O 10/06/17 07:00 Intake Total 1630 ml Output Total 4100 ml Balance -2470 ml Height & Weight Height: 5'5.00" Weight: 145lbs. 3.0oz. 65.136725ug; 21.5 BMI Method:Stated General Appearance: Moderate Distress, Thin HEENT: PERRL/EOMI, Pharynx Normal Neck: Non Tender, Supple Respiratory: Lungs Clear, Normal Breath Sounds, No Accessory Muscle Use Cardiovascular: Regular Rate, Rhythm, No Edema, No Murmur, Normal Peripheral Pulses Capillary Refill: Less Than 3 Seconds Gastrointestinal: non tender, soft, no organomegaly; No hepatomegaly, No spleenomegaly Extremity: Normal Capillary Refill, Pedal Edema (2+ to the mid tibia bilateral) Neurologic/Psychiatric: Alert, Motor Weakness (global) Skin: Normal Color, Warm/Dry Lymphatic: No Adenopathy Results Lab Laboratory Tests 10/04/17 12:15 10/05/17 04:30 10/06/17 04:00 Assessment/Plan Assessment/Plan Severe Sepsis secondary to Pneumonia vs UTI - BC Staphylococcus -Continue Vanco and Zosyn - until cultures are finalized Acute respiratory distress through the night -CTA is suggestive of PE -Lovenox started Hx of hypothyroid with thyroidectomy - Synthroid IV secondary to pt not being able to take PO Sinus tach -restart home atenolol Pulmonary edema -Lasix Anemia S/p 1 unit of PRBC Large left mediastinal lung mass. -bronchoscopy with fluoroscopy for morning -- Bronch cancelled secondary to acute PE and pt is too unstable Severe hypokalemia -replace Left leg wound/decub ulcer -Tissue trauma Malnutrition -Monitor DM, HTN ALLI JONES DO Oct 06, 2017 07:25
[2017-10-06] MEDS: PANTOPRAZOLE 40 MG (PROTONIX) VIAL IV SCH (08:20)
[2017-10-06] MEDS: VANCOMYCIN 1 GM/NS 250 ML IVPB IV SCH ×2 (08:25)
[2017-10-06] MEDS: ATENOLOL 50 MG (TENORMIN) TAB PO SCH (08:38)
--- NOTE | 2017-10-06 08:53 | Diagnostic Imaging Report ---
Indication: Septic shock. Compared with exam earlier this same day, this film is timed 8:12 a.m. Findings: Medial left upper chest mass redemonstrated. The right IJ catheter is at the SVC. Bilateral infiltrates and/or edema showed no change, heart size upper limit stable, right IJ at the SVC, small amounts of pleural fluid showed no obvious change. Impression: Left chest mass redemonstrated 5 lobe interstitial opacities, edema versus pneumonia with small effusions all unchanged. Dictated by: Dictated on workstation # [id number]
[2017-10-06] MEDS ORDERED: RT-ALBUTEROL SULF 2.5 MG/3 ML PRE-MIX VIAL INH SCH (11:15)
--- NOTE | 2017-10-06 11:26 | Progress Note (SOAP) ---
[facility] MEDICAL STUDENT 10/06/17 1125: Subjective Subjective/Events-last exam Ms. Ng is reporting that her breathing is improved this morning. She continues to report confusion about what is going on although she is AOx2. Dr. Quinn discussed with her possible options given her current status and she was understanding of what hospice is. She had no acute concerns this morning. Review of Systems Time Seen by Provider: 09:45 General: No Chills, No Night Sweats Pulmonary: No Dyspnea, No Pleuritic Chest Pain Cardiovascular: No: Chest Pain Gastrointestinal: Other (No BM since admission); No: Nausea, Vomiting Focused Exam Lactate Level 10/03/17 13:00: Lactic Acid Level 5.05*H 10/03/17 15:05: Lactic Acid Level 2.29*H 10/03/17 18:05: Lactic Acid Level 1.38 Objective Exam Last Set of Vital Signs Vital Signs Date Time Temp Pulse Resp B/P (MAP) Pulse Ox O2 Delivery O2 Flow Rate FiO2 10/06/17 10:42 79 100 10/06/17 10:38 100 Nasal Cannula 10/06/17 09:00 19 122/80 (94) 4.00 10/06/17 08:00 98.4 Capillary Refill : Less Than 3 SecondsLess Than 3 Seconds I&O Intake and Output 10/06/17 00:00 Intake Total 1580 ml Output Total 4435 ml Balance -2855 ml Intake Oral 80 ml IV Total 1500 ml Output Urine Total 4435 ml General: Alert, Other (Oriented to place and time) HEENT: Atraumatic, EOMI Lungs: Clear to Auscultation Heart: Regular Rate, Normal S1, Normal S2, No Murmurs Abdomen: Normal Bowel Sounds, Soft, No Tenderness Extremities: Normal Pulses, Other (L leg lesion wrapped in raf) Results/Procedures Lab Laboratory Tests 10/05/17 11:33: D-Dimer 2.36H 10/05/17 12:03: Troponin I < 0.30 10/05/17 13:31: Lab Scanned Report Transfusion Reaction Form 10/05/17 16:30: Blood Gas Puncture Site RIGHT BRACHIAL, Blood Gas Patient Temperature 97.9, Arterial Blood pH 7.44H, Arterial Blood Partial Pressure CO2 46H, Arterial Blood Partial Pressure O2 73L, Arterial Blood HCO3 31H, Arterial Blood Total CO2 32.3H, Arterial Blood Oxygen Saturation 96, Arterial Blood Base Excess 6.6H , Rene Test NA, Blood Gas Ventilator Setting NO, Blood Gas Inspired Oxygen 5L NC 10/05/17 16:48: Glucometer 257H 10/05/17 18:50: Troponin I < 0.30 10/05/17 23:50: Glucometer 131H 10/06/17 04:00: White Blood Count 15.0H, Red Blood Count 3.41L, Hemoglobin 8.7L, Hematocrit 29L , Mean Corpuscular Volume 85, Mean Corpuscular Hemoglobin 26, Mean Corpuscular Hemoglobin Concent 30L, Red Cell Distribution Width 19.0H, Platelet Count 245, Mean Platelet Volume 9.5, Neutrophils (%) (Auto) 84H, Lymphocytes (%) (Auto) 10L , Monocytes (%) (Auto) 5, Eosinophils (%) (Auto) 1, Basophils (%) (Auto) 0, Neutrophils # (Auto) 12.7H, Lymphocytes # (Auto) 1.5, Monocytes # (Auto) 0.8, Eosinophils # (Auto) 0.1, Basophils # (Auto) 0.0, Neutrophils % (Manual) 87, Lymphocytes % (Manual) 9, Monocytes % (Manual) 4, Hypochromasia SLIGHT, Sodium Level 146H, Potassium Level 3.5L, Chloride Level 105, Carbon Dioxide Level 28, Anion Gap 13, Blood Urea Nitrogen 13, Creatinine 0.79, Estimat Glomerular Filtration Rate > 60, BUN/Creatinine Ratio 16, Glucose Level 138H, Calcium Level 8.3L, Corrected Calcium 9.4, Phosphorus Level 2.8, Magnesium Level 1.4L, Total Bilirubin 1.1H, Aspartate Amino Transf (AST/SGOT) 11, Alanine Aminotransferase (ALT/SGPT) 6, Alkaline Phosphatase 93, Total Protein 5.4L, Albumin 2.6L 10/06/17 08:41: Glucometer 181H Microbiology 10/03/17 Blood Culture - Preliminary, Resulted Staph, Coag Neg (TARGET SETTER) 10/03/17 MRSA Screen - Final, Complete MRSA not isolated 10/03/17 Urine Culture - Final, Complete NO GROWTH Radiology Date of Exam: 10/03/17 CT CHEST W PROCEDURE: CT chest with contrast only. TECHNIQUE: Multiple contiguous axial images were obtained through the chest after administration of intravenous contrast. INDICATION: Cough, fever COMPARISON: There are no previous CT chest examinations available for comparison. FINDINGS: The plain film examination of the chest performed earlier today at 1:23 PM noted a fullness in the left hilum raising the question of a neoplastic mass in this area. On this exam, there is indeed a sizable 5.4 x 6.6 x 6.1 CM heterogeneous mass along the medial aspect of the left upper lung. This mass should be considered neoplastic until proven otherwise. The heart is mildly enlarged. There are coronary calcifications evident. The aorta is not abnormally dilated and there is no sign of dissection. The pulmonary arteries were not well opacified and consequently difficult to assess for a pulmonary embolus. There is no mediastinal or hilar adenopathy. There are chronic pulmonary changes evident and there are coarse interstitial densities about both darryl and in both lung bases, particularly on the right. There is no obvious breast mass. The sections through the upper abdomen fail to show any sign of an acute abnormality. There are surgical clips about the gallbladder fossa consistent with a prior cholecystectomy. There appears to be a small collection of fluid in this area. This may be fluid within the bowel as opposed to a free fluid collection. Also, there is a 1.3 x 1.4 CM nodule associated with the medial nenita of the right adrenal gland. This may represent a benign process. The possibility that this is secondary to metastatic disease secondary to the large lung mass cannot be entirely excluded however. If further imaging is desired, PET CT would be recommended. The bone windows show no sign of a fracture or of a destructive lesion. IMPRESSION: 1. There is a large mass along the medial aspect of the left upper lobe. This should be considered neoplastic until proven otherwise. 2. There is cardiomegaly and coronary artery disease and chronic pulmonary disease. There is no acute cardiopulmonary abnormality noted otherwise. 3. The nodule associated with the right adrenal gland may represent a benign process. The possibility that this is neoplastic in nature cannot be entirely excluded. Recommendations as above. 4. The fluid collection in the right upper quadrant may be fluid within the bowel. If further study is desired, then a complete CT abdomen and pelvis exam should be obtained. Assessment/Plan Assessment/Plan Admission Status: Inpatient Order (span 2 midnights) Assessment & Plan Ms. Ng is a 82F w/ a PMH of polio, DM, cholecystectomy, hip surgery who was admitted with septic shock and found to have a post-obstructive mass on CT chest and subsequently found to have PE on CTA. Septic shock Pneumonia involving left lung Mass of left lung - Patient has completed 30 mg/kg fluids, VS stable, LA resolved - post obstructive mass on CT chest - Started on Vanc/zosyn on admission - BC grew coag neg gram positive cocci >Continue vanc, stop zosyn >Pulmonology planned on doing bronch bx on 10/06, cancelled d/t PE >Family meeting currently being planned given current health status and continued deterioration PE -Pt developed ARF on night of 10/04 requiring new O2 need -10/05 CTA showed PE >Lovenox Sinus Tachycardia >Restarted SHELLACKER atenolol Wound of left leg -wound care consulted >Concerned for possible SCC, planning for bx, not arranged yet Localized swelling of both lower extremities -received IV lasix on 10/04 >IV lasix 40mg x1 10/06 Decubitus ulcer >Wound ulcer Diabetes -A1c this admission 7.0 >SSI HTN > holding meds d/t septic shock Hypothyroidism -SHELLACKER synthroid >IV synthroid d/t pt not able to tolerate PO intake Severe protein-calorie malnutrition >Glucerna Elevated INR -on lovenox now for PE Elevated bilirubin-resolved Normocytic anemia -Iron studies showed ACD >CTM Hypokalemia and hypomagnesemia -replace PRN FEN: LR, replace lytes PRN, diabetic diet PPx:lovenox Code: Full Dispo Continue admit to medicine (1) Septic shock Status: Acute (2) Pneumonia involving left lung Status: Acute Qualifiers: Qualified Codes: J18.1 - Lobar pneumonia, unspecified organism (3) Mass of left lung Status: Acute (4) Diabetes Status: Chronic Qualifiers: Qualified Codes: E11.9 - Type 2 diabetes mellitus without complications (5) Normocytic anemia Status: Chronic (6) HTN (hypertension) Status: Chronic Qualifiers: Qualified Codes: I10 - Essential (primary) hypertension (7) Severe protein-calorie malnutrition Status: Chronic (8) Elevated INR Status: Acute (9) Wound of left leg Status: Acute Qualifiers: Qualified Codes: S81.802A - Unspecified open wound, left lower leg, initial encounter (10) Localized swelling of both lower extremities Status: Chronic (11) Hypokalemia Status: Resolved (12) Hypomagnesemia Status: Resolved Clinical Quality Measures DVT/VTE Risk/Contraindication: Risk Factor Score Per Nursin RFS Level Per Nursing on Admit: 4+=Very High GENE QUINN MD 10/06/17 1541: Subjective Subjective/Events-last exam Patient denies any pain this AM. States that she is still short of breath. Nursing states that she was coughing with sips of water and breathing has become more labored throughout the night and AM. Review of Systems Date Seen by Provider: Oct 06, 2017 Objective Exam General: Alert HEENT: Other (dry MM) Lungs: Other (Diffuse crackles, increased work of breathing) Heart: Regular Rate, No Murmurs Abdomen: Normal Bowel Sounds, Soft, No Tenderness, No Hepatosplenomegaly, No Masses Extremities: Other (L leg lesion wrapped in raf, 3+ pitting edema) Assessment/Plan Assessment/Plan Assessment & Plan Agree with above assessment and plan with the exception of what is noted below. 82 yo F admitted for Septic shock that shows deterioration in the last few days. Patient not stable to undergo bronch of lung mass, which due to size and progression of disease is concerning for malignancy. Patient is currently on therapeutic lovenox for probable PE and requiring bipap. Patient is NPO at this time due to concerns for aspiration. Speech has been consulted. Discussed code status with patient and she states that she wishes to be DNR. Family meeting tomorrow to discuss goals of care as patient is moving toward comfort care vs hospice. Above plan has been discussed with Dr Carter. RE[facility]IKATH[facility] MEDICAL STUDENT Oct 06, 2017 11:25 GENE QUINN MD Oct 06, 2017 15:41
--- NOTE | 2017-10-06 11:31 | Diagnostic Imaging Report ---
Indication: Dyspnea. Comparison made with prior examination of 10/05/2017. Findings: Heart size is stable. There is unchanged left hilar mass. There is some venous congestion. Some right basilar atelectasis and/or pneumonitis. No pneumothorax. Right internal jugular central venous catheter remains in satisfactory position. Impression: Persistent large left hilar mass. Mild venous congestion and some right basilar atelectasis and/or pneumonitis. Dictated by: Dictated on workstation # [id number]
[2017-10-06] MEDS: FUROSEMIDE 40 MG/4 ML INJ (LASIX) IVP SCH ×2 (12:12→21:23)
[2017-10-06] MEDS ORDERED: inSUlin ASPART (NovoLOG) 1 UNIT/0.01 ML (CHARGE PER UNIT) SC SCH (13:30)
[2017-10-06] MEDS ORDERED: RT-ALBUTEROL SULF 2.5 MG/3 ML PRE-MIX VIAL INH PRN (13:45)
[2017-10-06] MEDS: PIPERACILLIN SODIUM/TAZOBACTAM 4.5 GM in NS (IVPB) 100 ML IV SCH ×2 (14:56→21:24)
[2017-10-07] VITALS (27 sets, daily range): BP systolic 91–139; BP diastolic 50–95
[2017-10-07] MEDS: inSUlin ASPART (NovoLOG) 1 UNIT/0.01 ML (CHARGE PER UNIT) SC SCH ×4 (00:24→18:30)
[2017-10-07] MEDS: RT-ALBUTEROL SULF 2.5 MG/3 ML PRE-MIX VIAL INH SCH ×6 (02:26→23:00)
[2017-10-07] MEDS: ENOXAPARIN 60 MG/0.6 ML (LOVENOX) SYR SC SCH ×2 (05:40→18:30)
[2017-10-07] MEDS: PIPERACILLIN SODIUM/TAZOBACTAM 4.5 GM in NS (IVPB) 100 ML IV SCH ×3 (05:41→23:04)
[2017-10-07 05:50] LABS: BASOPHILS % (AUTO) 0 % (0-10); EOSINOPHILS % (AUTO) 0 % (0-10); HEMATOCRIT 29 % (35-52); HEMOGLOBIN 8.5 G/DL (11.5-16.0); LYMPHOCYTES # (AUTO) 1.2 X 10^3 (1.0-4.0); LYMPHOCYTES % (AUTO) 8 % (12-44); MEAN CORPUSCULAR HEMOGLOBIN 25 PG (25-34); MEAN CORPUSCULAR HGB CONC 29 G/DL (32-36); MEAN CORPUSCULAR VOLUME 85 FL (80-99); MEAN PLATELET VOLUME 9.5 FL (7.4-10.4); MONOCYTES # (AUTO) 0.8 X 10^3 (0.0-1.0); MONOCYTES % (AUTO) 6 % (0-12); NEUTROPHILS % (AUTO) 87 % (42-75); PLATELET COUNT 241 10^3/uL (130-400); RED BLOOD COUNT 3.43 10^6/uL (4.35-5.85); RED CELL DISTRIBUTION WIDTH 19.9 % (10.0-14.5); WHITE BLOOD COUNT 15.1 10^3/uL (4.3-11.0)
--- NOTE | 2017-10-07 06:08 | Pulmonary Progress Note ---
Subjective Time Seen by Provider: 06:14 Subjective/Events-last exam PT on BiPAP. Family is discussing possible hospice care. Sepsis Event Evaluation Height, Weight, BMI Height: 5'5.00" Weight: 145lbs. 3.0oz. [id number]; 21.5 BMI Method:Stated Exam Exam Vital Signs Date Time Temp Pulse Resp B/P (MAP) Pulse Ox O2 Delivery O2 Flow Rate FiO2 10/07/17 04:00 100 NIV Bilevel 40 10/07/17 04:00 68 14 126/64 (84) 100 NIV Bilevel 35.00 10/07/17 03:00 64 20 104/56 (72) 100 NIV Bilevel 35.00 10/07/17 02:26 66 16 97 35.00 10/07/17 02:00 63 15 102/61 (75) 100 NIV Bilevel 35.00 10/07/17 01:00 83 23 131/93 (106) 100 NIV Bilevel 35.00 10/07/17 01:00 85 10/07/17 00:00 100 NIV Bilevel 40 10/07/17 00:00 62 16 99/67 (78) 100 NIV Bilevel 35.00 10/07/17 00:00 97.5 10/06/17 23:00 71 21 120/77 (91) 100 NIV Bilevel 35.00 10/06/17 22:00 65 24 105/60 (75) 100 NIV Bilevel 35.00 10/06/17 21:33 69 15 100 40.00 10/06/17 21:00 66 16 132/74 (93) 100 NIV Bilevel 35.00 10/06/17 20:00 98.0 62 17 100/67 (78) 100 NIV Bilevel 40.00 10/06/17 20:00 100 NIV Bilevel 40 10/06/17 19:00 62 10/06/17 19:00 64 17 100/64 (76) 100 NIV Bilevel 40.00 10/06/17 18:00 103 19 106/68 (81) 97 NIV Bilevel 40.00 10/06/17 17:00 79 14 104/64 (77) 95 NIV Bilevel 40.00 10/06/17 16:41 100 NIV Bilevel 40 10/06/17 16:00 87 15 121/88 (99) 95 NIV Bilevel 40.00 10/06/17 15:10 NIV Bilevel 40.00 10/06/17 15:06 113 24 99 40.00 10/06/17 14:39 90 Nasal Cannula 3.00 10/06/17 13:00 75 10/06/17 12:43 97.7 10/06/17 12:14 100 Nasal Cannula 4.00 10/06/17 10:42 79 100 10/06/17 10:38 100 Nasal Cannula 4.00 10/06/17 09:00 96 19 122/80 (94) 99 High Flow N/C 4.00 10/06/17 08:38 96 High Flow N/C 4.00 10/06/17 08:30 96 Nasal Cannula 4.00 10/06/17 08:00 98.4 10/06/17 08:00 87 34 136/82 (100) 95 High Flow N/C 4.00 10/06/17 07:00 90 10/06/17 07:00 85 20 128/66 (86) 92 10/06/17 06:56 86 20 92 40.00 I & O 10/07/17 06:59 Intake Total 250 ml Output Total 1025 ml Balance -775 ml Height & Weight Height: 5'5.00" Weight: 145lbs. 3.0oz. [id number]; 21.5 BMI Method:Stated General Appearance: Moderate Distress, Thin HEENT: PERRL/EOMI, Pharynx Normal Neck: Non Tender, Supple Respiratory: Lungs Clear, Normal Breath Sounds, No Accessory Muscle Use Cardiovascular: Regular Rate, Rhythm, No Edema, No Murmur, Normal Peripheral Pulses Capillary Refill: Less Than 3 Seconds Gastrointestinal: non tender, soft, no organomegaly; No hepatomegaly, No spleenomegaly Extremity: Normal Capillary Refill, Pedal Edema (2+ to the mid tibia bilateral) Neurologic/Psychiatric: Alert, Motor Weakness (global) Skin: Normal Color, Warm/Dry Lymphatic: No Adenopathy Results Lab Laboratory Tests 10/06/17 04:00 10/07/17 05:40 Assessment/Plan Assessment/Plan Severe Sepsis secondary to Pneumonia vs UTI - BC Staphylococcus -Continue Vanco and Zosyn - until cultures are finalized Acute respiratory distress through the night -BiPAP -CTA is suggestive of PE -Lovenox started Pulmonary edema -Continue Lasix IV 40mg BID -Check BNP severe hypokalemia -Give 40PO KCL -60 KCL IV -Start spironolactone -repeat chem 2hrs after IV infusion -PT is getting 40mg of lasix BID Persistent leukocytosis - afebrial -No steroids ordered -Continue to monitor close Hx of hypothyroid with thyroidectomy - Synthroid IV secondary to pt not being able to take PO Pulmonary edema -Lasix Anemia S/p 1 unit of PRBC Large left mediastinal lung mass. - Bronch cancelled secondary to acute PE and pt is too unstable Severe hypokalemia -replace Left leg wound/decub ulcer -Tissue trauma Malnutrition -Monitor DM, HTN Family is considering hospice care. Pt's prognosis is overall very poor. Will do bronchoscopy if family consents when pt is stable enough. ALLI JONES DO Oct 07, 2017 06:08
[2017-10-07 06:11] LABS: MAGNESIUM 1.7 MG/DL (1.8-2.4); PHOSPHORUS 4.2 MG/DL (2.3-4.7)
[2017-10-07 06:14] LABS: ALANINE AMINOTRANSFERASE 6 U/L (0-55); ALBUMIN 2.3 GM/DL (3.2-4.5); ALKALINE PHOSPHATASE 96 U/L (40-136); BILIRUBIN,TOTAL 0.8 MG/DL (0.1-1.0); BUN/CREATININE RATIO 18; CALCIUM 8.4 MG/DL (8.5-10.1); CARBON DIOXIDE 30 MMOL/L (21-32); CHLORIDE 104 MMOL/L (98-107); CREATININE SERUM 0.85 MG/DL (0.60-1.30); GFR ESTIMATED > 60; GLUCOSE 135 MG/DL (70-105); POTASSIUM 2.9 MMOL/L (3.6-5.0); SODIUM 147 MMOL/L (135-145); TOTAL PROTEIN 5.2 GM/DL (6.4-8.2)
[2017-10-07 06:22] LABS: VANCOMYCIN,TROUGH 22.7 UG/ML (10.0-20.0)
[2017-10-07] MEDS: MAGNESIUM 1 GM/100 ML IVPB 100 ML IV SCH (06:22)
[2017-10-07] MEDS: KCL 20 MEQ TAB (K-DUR) PO SCH (06:22)
[2017-10-07] MEDS: POTASSIUM CL 10MEQ/50ML IVPB 50 ML IV SCH ×7 (06:22→11:31)
[2017-10-07] MEDS: MULTIVIT W/MINERALS TAB (THERAGRAN M) PO SCH (06:34)
[2017-10-07] MEDS ORDERED: TROUGH ORDER-PHARMACY XX NR (07:00)
[2017-10-07] MEDS ORDERED: KCL 20 MEQ POWDER FOR ORAL SOLUTION PO NR (07:15)
--- NOTE | 2017-10-07 08:00 | Diagnostic Imaging Report ---
INDICATION: Sepsis. COMPARISON: 10/06/2017. FINDINGS: Single view of the chest demonstrates left hilar lung mass. The heart is slightly enlarged with persistent but decreased central vascular congestion. There are small effusions with dependent atelectasis in both bases. There is no pneumothorax. Right IJ catheter is stable. IMPRESSION: 1. Cardiac enlargement with persistent but decreased central vascular congestion. 2. Unchanged bibasilar atelectasis, effusion and infiltrate. 3. Left hilar mass. Dictated by: Dictated on workstation # [id number]
[2017-10-07] MEDS: PANTOPRAZOLE 40 MG (PROTONIX) VIAL IV SCH (08:08)
[2017-10-07] MEDS: FUROSEMIDE 40 MG/4 ML INJ (LASIX) IVP SCH (08:08)
[2017-10-07] MEDS: ATENOLOL 50 MG (TENORMIN) TAB PO SCH (08:08)
[2017-10-07] MEDS ORDERED: SPIRONOLACTONE 25 MG (ALDACTONE) TAB PO SCH (09:00)
--- NOTE | 2017-10-07 11:24 | Progress Note (SOAP) ---
[facility] MEDICAL STUDENT 10/07/17 11:23am: Subjective Subjective/Events-last exam Pt voiced again this morning confusion about what is going on. I explained to her again her current status is worrisome for further decline. I informed her of the family meeting that is scheduled today to discuss further options. She had no acute concerns. Review of Systems Time Seen by Provider: 10:15 General: No Chills, No Night Sweats; Fatigue Pulmonary: Dyspnea; No Cough, No Pleuritic Chest Pain Cardiovascular: No: Chest Pain Gastrointestinal: No: Nausea, Vomiting, Abdominal Pain Objective Exam Last Set of Vital Signs Vital Signs Date Time Temp Pulse Resp B/P (MAP) Pulse Ox O2 Delivery O2 Flow Rate FiO2 10/07/17 11:00 92 34 134/88 (103) 97 High Flow N/C 3.00 10/07/17 08:06 97.9 10/07/17 08:00 40 Capillary Refill : Less Than 3 SecondsLess Than 3 Seconds I&O Intake and Output 10/07/17 00:00 Intake Total 850 ml Output Total 1050 ml Balance -200 ml Intake Oral 0 ml IV Total 850 ml Output Urine Total 1050 ml General: Alert, Oriented X3, Cooperative, No Acute Distress HEENT: Atraumatic, EOMI Lungs: Clear to Auscultation, Normal Air Movement Heart: Regular Rate, Normal S1, Normal S2, No Murmurs Abdomen: Normal Bowel Sounds, Soft, No Tenderness Extremities: Normal Pulses, Other (BL LE 3+ edema) Skin: Other (L LE lesion in gauze) Results/Procedures Lab Laboratory Tests 10/06/17 12:12: Glucometer 196H 10/06/17 17:07: Glucometer 143H 10/07/17 05:40: White Blood Count 15.1H, Red Blood Count 3.43L, Hemoglobin 8.5L, Hematocrit 29L , Mean Corpuscular Volume 85, Mean Corpuscular Hemoglobin 25, Mean Corpuscular Hemoglobin Concent 29L, Red Cell Distribution Width 19.9H, Platelet Count 241, Mean Platelet Volume 9.5, Neutrophils (%) (Auto) 87H, Lymphocytes (%) (Auto) 8L , Monocytes (%) (Auto) 6, Eosinophils (%) (Auto) 0, Basophils (%) (Auto) 0, Neutrophils # (Auto) 13.0H, Lymphocytes # (Auto) 1.2, Monocytes # (Auto) 0.8, Eosinophils # (Auto) 0.0, Basophils # (Auto) 0.0, Sodium Level 147H, Potassium Level 2.9L, Chloride Level 104, Carbon Dioxide Level 30, Anion Gap 13, Blood Urea Nitrogen 15, Creatinine 0.85, Estimat Glomerular Filtration Rate > 60, BUN/ Creatinine Ratio 18, Glucose Level 135H, Calcium Level 8.4L, Corrected Calcium 9.8, Phosphorus Level 4.2, Magnesium Level 1.7L, Total Bilirubin 0.8, Aspartate Amino Transf (AST/SGOT) 8, Alanine Aminotransferase (ALT/SGPT) 6, Alkaline Phosphatase 96, B-Type Natriuretic Peptide 2675.8H, Total Protein 5.2L, Albumin 2.3L, Vancomycin Level Trough 22.7H Microbiology 10/03/17 Blood Culture - Preliminary, Resulted Staph, Coag Neg (JELLY MAKER) 10/03/17 MRSA Screen - Final, Complete MRSA not isolated 10/03/17 Urine Culture - Final, Complete NO GROWTH Radiology Date of Exam: 10/03/17 CT CHEST W PROCEDURE: CT chest with contrast only. TECHNIQUE: Multiple contiguous axial images were obtained through the chest after administration of intravenous contrast. INDICATION: Cough, fever COMPARISON: There are no previous CT chest examinations available for comparison. FINDINGS: The plain film examination of the chest performed earlier today at 1:23 PM noted a fullness in the left hilum raising the question of a neoplastic mass in this area. On this exam, there is indeed a sizable 5.4 x 6.6 x 6.1 CM heterogeneous mass along the medial aspect of the left upper lung. This mass should be considered neoplastic until proven otherwise. The heart is mildly enlarged. There are coronary calcifications evident. The aorta is not abnormally dilated and there is no sign of dissection. The pulmonary arteries were not well opacified and consequently difficult to assess for a pulmonary embolus. There is no mediastinal or hilar adenopathy. There are chronic pulmonary changes evident and there are coarse interstitial densities about both darryl and in both lung bases, particularly on the right. There is no obvious breast mass. The sections through the upper abdomen fail to show any sign of an acute abnormality. There are surgical clips about the gallbladder fossa consistent with a prior cholecystectomy. There appears to be a small collection of fluid in this area. This may be fluid within the bowel as opposed to a free fluid collection. Also, there is a 1.3 x 1.4 CM nodule associated with the medial nenita of the right adrenal gland. This may represent a benign process. The possibility that this is secondary to metastatic disease secondary to the large lung mass cannot be entirely excluded however. If further imaging is desired, PET CT would be recommended. The bone windows show no sign of a fracture or of a destructive lesion. IMPRESSION: 1. There is a large mass along the medial aspect of the left upper lobe. This should be considered neoplastic until proven otherwise. 2. There is cardiomegaly and coronary artery disease and chronic pulmonary disease. There is no acute cardiopulmonary abnormality noted otherwise. 3. The nodule associated with the right adrenal gland may represent a benign process. The possibility that this is neoplastic in nature cannot be entirely excluded. Recommendations as above. 4. The fluid collection in the right upper quadrant may be fluid within the bowel. If further study is desired, then a complete CT abdomen and pelvis exam should be obtained. Assessment/Plan Assessment/Plan Assessment & Plan Ms. Ng is a 82F w/ a PMH of polio, DM, cholecystectomy, hip surgery who was admitted with septic shock and found to have a post-obstructive mass on CT chest and subsequently found to have PE on CTA. 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 Wound of left leg -wound care consulted >Concerned for possible SCC, planning for bx, not arranged yet Localized swelling of both lower extremities -received IV lasix on 10/04 >IV lasix 40mg BID >Spironolactone Decubitus ulcer >Wound ulcer Diabetes -A1c this admission 7.0 >SSI HTN > holding meds d/t septic shock Hypothyroidism -CERTIFIED PERFORMANCE TECHNOLOGIST synthroid >IV synthroid d/t pt not able to tolerate PO intake Severe protein-calorie malnutrition >Glucerna Elevated INR -on lovenox now for PE Elevated bilirubin-resolved Normocytic anemia -Iron studies showed ACD >CTM Hypokalemia and hypomagnesemia -replace PRN FEN: LR, replace lytes PRN, diabetic diet PPx:lovenox Code: Full Dispo Continue admit to medicine (1) Septic shock Status: Acute (2) Pneumonia involving left lung Status: Acute Qualifiers: Qualified Codes: J18.1 - Lobar pneumonia, unspecified organism (3) Mass of left lung Status: Acute (4) Diabetes Status: Chronic Qualifiers: Qualified Codes: E11.9 - Type 2 diabetes mellitus without complications (5) Normocytic anemia Status: Chronic (6) HTN (hypertension) Status: Chronic Qualifiers: Qualified Codes: I10 - Essential (primary) hypertension (7) Severe protein-calorie malnutrition Status: Chronic (8) Elevated INR Status: Acute (9) Wound of left leg Status: Acute Qualifiers: Qualified Codes: S81.802A - Unspecified open wound, left lower leg, initial encounter (10) Localized swelling of both lower extremities Status: Chronic (11) Hypokalemia Status: Resolved (12) Hypomagnesemia Status: Resolved Clinical Quality Measures DVT/VTE Risk/Contraindication: Risk Factor Score Per Nursin RFS Level Per Nursing on Admit: 4+=Very High GENE HERNANDEZ MD 10/07/17 3:02pm: Subjective Subjective/Events-last exam Patient denied any concerns. Denies pain at this time. Review of Systems Date Seen by Provider: Oct 07, 2017 Objective Exam General: Alert, Oriented X3, Cooperative, No Acute Distress Lungs: Other (Diminished breath sounds) Heart: Regular Rate, No Murmurs Abdomen: Normal Bowel Sounds, Soft, No Tenderness Extremities: Other (BL LE 3+ edema) Skin: Other (L LE lesion in gauze) Psych/Mental Status: Mood NL Assessment/Plan Assessment/Plan Assessment & Plan Patient seen and examined with Bridget Mendoza MS4, Agree with above documentation BRIDGET MENDOZA MEDICAL STUDENT Oct 07, 2017 11:23 am GENE HERNANDEZ MD Oct 07, 2017 3:02 pm
[2017-10-07] MEDS: VANCOMYCIN 750 MG/NS 250 ML IVPB IV SCH ×2 (11:37)
[2017-10-07] MEDS ORDERED: ALBUMIN 5% 12.5 GM/250 ML 500 ML IV ONE ×2 (22:30→22:45)
[2017-10-08] VITALS (21 sets, daily range): BP systolic 92–150; BP diastolic 55–90
[2017-10-08] MEDS: inSUlin ASPART (NovoLOG) 1 UNIT/0.01 ML (CHARGE PER UNIT) SC SCH ×3 (01:12→12:31)
[2017-10-08] MEDS: RT-ALBUTEROL SULF 2.5 MG/3 ML PRE-MIX VIAL INH SCH ×3 (02:42→10:13)
[2017-10-08 04:44] LABS: BASOPHILS % (AUTO) 0 % (0-10); EOSINOPHILS % (AUTO) 0 % (0-10); HEMATOCRIT 28 % (35-52); HEMOGLOBIN 8.3 G/DL (11.5-16.0); LYMPHOCYTES # (AUTO) 1.6 X 10^3 (1.0-4.0); LYMPHOCYTES % (AUTO) 13 % (12-44); MEAN CORPUSCULAR HEMOGLOBIN 26 PG (25-34); MEAN CORPUSCULAR HGB CONC 30 G/DL (32-36); MEAN CORPUSCULAR VOLUME 86 FL (80-99); MEAN PLATELET VOLUME 9.8 FL (7.4-10.4); MONOCYTES # (AUTO) 0.7 X 10^3 (0.0-1.0); MONOCYTES % (AUTO) 6 % (0-12); NEUTROPHILS # (AUTO) 10.2 X 10^3 (1.8-7.8); NEUTROPHILS % (AUTO) 81 % (42-75); PLATELET COUNT 224 10^3/uL (130-400); RED BLOOD COUNT 3.24 10^6/uL (4.35-5.85); RED CELL DISTRIBUTION WIDTH 20.4 % (10.0-14.5); WHITE BLOOD COUNT 12.6 10^3/uL (4.3-11.0)
[2017-10-08 05:13] LABS: ALBUMIN 2.6 GM/DL (3.2-4.5); BILIRUBIN,TOTAL 1.1 MG/DL (0.1-1.0); CALCIUM 8.5 MG/DL (8.5-10.1); CREATININE SERUM 1.2 MG/DL (0.60-1.30); POTASSIUM 4.4 MMOL/L (3.6-5.0); TOTAL PROTEIN 5.1 GM/DL (6.4-8.2)
[2017-10-08 05:43] LABS: MAGNESIUM 1.7 MG/DL (1.8-2.4); PHOSPHORUS 4.3 MG/DL (2.3-4.7)
[2017-10-08] MEDS: POTASSIUM CL 10MEQ/50ML IVPB 50 ML IV SCH (06:06)
[2017-10-08] MEDS: MAGNESIUM 1 GM/100 ML IVPB 100 ML IV SCH ×3 (06:06→08:55)
[2017-10-08] MEDS: KCL 20 MEQ TAB (K-DUR) PO SCH (06:07)
[2017-10-08] MEDS ORDERED: LACTATED RINGERS 1,000 ML IV ONE (06:11)
--- NOTE | 2017-10-08 06:16 | Pulmonary Progress Note ---
Subjective Time Seen by Provider: 06:17 Subjective/Events-last exam PT is still requiring BIPAP. Has had decreased UO. Sepsis Event Evaluation Height, Weight, BMI Height: 5'5.00" Weight: 146lbs. 3.0oz. 66.632682ze; 21.5 BMI Method:Stated Exam Exam Vital Signs Date Time Temp Pulse Resp B/P (MAP) Pulse Ox O2 Delivery O2 Flow Rate FiO2 10/08/17 06:00 61 18 100/64 (76) 100 NIV Bilevel 35.00 10/08/17 05:00 71 21 115/89 (98) 100 NIV Bilevel 35.00 10/08/17 04:29 71 23 100 35.00 10/08/17 04:00 66 26 121/69 (86) 100 NIV Bilevel 35.00 10/08/17 04:00 96 NIV Bilevel 35 10/08/17 03:00 66 17 111/69 (83) 92 NIV Bilevel 35.00 10/08/17 02:42 68 20 93 35.00 10/08/17 02:00 68 25 121/66 (84) 95 NIV Bilevel 35.00 10/08/17 01:03 97.5 10/08/17 01:00 67 22 92/55 (67) 100 NIV Bilevel 35.00 10/08/17 01:00 67 10/08/17 00:27 NIV Bilevel 35.00 10/08/17 00:17 99 38 100 35.00 10/08/17 00:00 96 Nasal Cannula 2.00 10/08/17 00:00 92 28 150/90 (110) 94 High Flow N/C 2.00 10/07/17 23:00 76 29 130/78 (95) 100 High Flow N/C 2.00 10/07/17 23:00 97 Nasal Cannula 3.00 10/07/17 22:00 78 27 128/92 (104) 97 High Flow N/C 2.50 10/07/17 21:00 81 37 115/64 (81) 100 High Flow N/C 2.50 10/07/17 20:00 81 34 114/62 (79) 100 High Flow N/C 2.50 10/07/17 20:00 98 Nasal Cannula 2.50 10/07/17 19:25 98.0 87 28 138/84 (102) 98 High Flow N/C 2.50 10/07/17 19:03 97 Nasal Cannula 3.00 10/07/17 19:00 88 29 138/84 (102) 96 High Flow N/C 3.00 10/07/17 19:00 88 10/07/17 18:00 77 30 91/50 (64) 98 High Flow N/C 3.00 10/07/17 17:00 86 50 137/88 (104) 96 High Flow N/C 3.00 10/07/17 16:00 96 Nasal Cannula 3.00 10/07/17 16:00 81 42 131/94 (106) 97 High Flow N/C 3.00 10/07/17 15:03 98 Nasal Cannula 3.00 10/07/17 15:00 71 25 139/94 (109) 100 High Flow N/C 3.00 10/07/17 14:00 70 28 108/73 (85) 99 High Flow N/C 3.00 10/07/17 13:00 81 10/07/17 13:00 81 35 118/77 (91) 97 High Flow N/C 3.00 10/07/17 12:00 100 Nasal Cannula 3.00 10/07/17 12:00 86 39 126/79 (95) 97 High Flow N/C 3.00 10/07/17 11:30 97.2 10/07/17 11:00 92 34 134/88 (103) 97 High Flow N/C 3.00 10/07/17 10:47 97 Nasal Cannula 3.00 10/07/17 10:00 87 36 126/89 (101) 99 High Flow N/C 3.00 10/07/17 09:00 93 30 131/85 (100) 98 High Flow N/C 3.00 10/07/17 08:06 97.9 86 24 124/79 (94) 100 High Flow N/C 3.00 10/07/17 08:00 100 NIV Bilevel 40 10/07/17 07:00 84 10/07/17 07:00 84 17 133/67 (89) 100 High Flow N/C 3.00 10/07/17 06:45 80 16 100 35.00 I & O 10/08/17 06:59 Intake Total 0 ml Output Total 375 ml Balance -375 ml Height & Weight Height: 5'5.00" Weight: 146lbs. 3.0oz. 66.018275lb; 21.5 BMI Method:Stated General Appearance: Mild Distress, Thin HEENT: PERRL/EOMI, Pharynx Normal Neck: Non Tender, Supple Respiratory: No Respiratory Distress, Crackles Cardiovascular: No Murmur, Tachycardia Capillary Refill: Less Than 3 Seconds Gastrointestinal: non tender, soft, no organomegaly; No hepatomegaly, No spleenomegaly Extremity: Normal Capillary Refill, Pedal Edema (2+ to the mid tibia bilateral) Neurologic/Psychiatric: Alert, Motor Weakness (global) Skin: Normal Color, Warm/Dry Lymphatic: No Adenopathy Results Lab Laboratory Tests 10/07/17 05:40 10/07/17 14:10 10/07/17 18:35 10/08/17 04:30 Assessment/Plan Assessment/Plan Severe Sepsis secondary to Pneumonia vs UTI - BC Staphylococcus -Continue Vanco and Zosyn for now Acute respiratory distress through the night -BiPAP -CTA is suggestive of PE -Lovenox started Pulmonary edema -Continue Lasix IV 40mg daily Persistent leukocytosis - afebrial -No steroids ordered -Continue to monitor close Hx of hypothyroid with thyroidectomy - Synthroid IV secondary to pt not being able to take PO Pulmonary edema -Lasix Anemia S/p 1 unit of PRBC Large left mediastinal lung mass. - Bronch cancelled secondary to acute PE and pt is too unstable Left leg wound/decub ulcer -Tissue trauma Malnutrition -Monitor DM, HTN Family is considering hospice care. Pt's prognosis is overall very poor. Will do bronchoscopy if family consents when pt is stable enough. ALLI JONES DO Oct 08, 2017 06:16
[2017-10-08] MEDS ORDERED: FUROSEMIDE 40 MG/4 ML INJ (LASIX) ONE (06:19)
[2017-10-08] MEDS: PIPERACILLIN SODIUM/TAZOBACTAM 4.5 GM in NS (IVPB) 100 ML IV SCH (06:24)
[2017-10-08] MEDS: ENOXAPARIN 60 MG/0.6 ML (LOVENOX) SYR SC SCH (06:25)
[2017-10-08] MEDS: LACTATED RINGERS 1,000 ML IV SCH (06:41)
[2017-10-08] MEDS ORDERED: FUROSEMIDE 40 MG/4 ML INJ (LASIX) IVP ONE (06:45)
[2017-10-08] MEDS ORDERED: FUROSEMIDE 40 MG/4 ML INJ (LASIX) IVP SCH (09:00)
--- NOTE | 2017-10-08 09:06 | Diagnostic Imaging Report ---
INDICATION: Septic shock and shortness of breath. Comparison made with prior examination 10/07/2017. FINDINGS: Heart size is normal. The persistent left perihilar mass. There is moderate venous congestion. There are small bilateral pleural effusions. There is no pneumothorax. IMPRESSION: Persistent left hilar mass. Moderate central pulmonary venous congestion with bilateral pleural effusions left greater than right. Dictated by: Dictated on workstation # [id number]
[2017-10-08] MEDS: ATENOLOL 50 MG (TENORMIN) TAB PO SCH (09:30)
[2017-10-08] MEDS: PANTOPRAZOLE 40 MG (PROTONIX) VIAL IV SCH (09:47)
[2017-10-08] MEDS: MULTIVIT W/MINERALS TAB (THERAGRAN M) PO SCH (09:47)
[2017-10-08] MEDS: LEVOTHYROXINE 100 MCG INJ (SYNTHROID) VIAL IV SCH (09:47)
--- NOTE | 2017-10-08 09:59 | Progress Note (SOAP) ---
Subjective Subjective/Events-last exam Patient has no complaints at the time of exam. She is sleepy, but awakes to voice and is able to answer simple questions. She reports she feels a little better than yesterday, and she feels her breathing has gotten a bit better. She was able to feed herself a few bites of lunch. She and her family met with [facility] this morning, and they have decided to proceed with hospice care. They desire placement in a facility for end of life care, and are aware that this will likely not be able to take place until Tuesday due to the holiday weekend. Review of Systems Date Seen by Provider: Oct 08, 2017 Time Seen by Provider: 12:40 General: No Chills; Fatigue HEENT: No Head Aches, No Eye Pain Pulmonary: Dyspnea Cardiovascular: Edema; No: Chest Pain, Palpitations Gastrointestinal: No: Nausea, Vomiting Neurological: No: Seizures Objective Exam Last Set of Vital Signs Vital Signs Date Time Temp Pulse Resp B/P (MAP) Pulse Ox O2 Delivery O2 Flow Rate FiO2 10/08/17 09:00 58 20 101/61 (74) 100 Nasal Cannula 2.00 10/08/17 08:00 97.4 10/08/17 04:00 35 Capillary Refill : Less Than 3 SecondsLess Than 3 Seconds I&O Intake and Output 10/08/17 00:00 Intake Total 0 ml Output Total 955 ml Balance -955 ml Intake Oral 0 ml Output Urine Total 955 ml General: Alert, Cooperative, No Acute Distress HEENT: Atraumatic, EOMI, Mucous Memb Moist/[place] Neck: Supple Lungs: Other (diminished with poor air exchange, wheezing) Heart: Regular Rate, Normal S1, Normal S2 Abdomen: Normal Bowel Sounds, Soft, No Tenderness Extremities: No Cyanosis, Other (significant lower extremity edema) Neuro: Normal Speech, Normal Tone Psych/Mental Status: Mental Status NL, Mood NL Results/Procedures Lab Laboratory Tests 10/07/17 11:28: Glucometer 137H 10/07/17 14:10: Potassium Level 5.7H 10/07/17 18:30: Glucometer 135H 10/07/17 18:35: Potassium Level 5.3H 10/08/17 01:08: Glucometer 198H 10/08/17 04:30: White Blood Count 12.6H, Red Blood Count 3.24L, Hemoglobin 8.3L, Hematocrit 28L , Mean Corpuscular Volume 86, Mean Corpuscular Hemoglobin 26, Mean Corpuscular Hemoglobin Concent 30L, Red Cell Distribution Width 20.4H, Platelet Count 224, Mean Platelet Volume 9.8, Neutrophils (%) (Auto) 81H, Lymphocytes (%) (Auto) 13 , Monocytes (%) (Auto) 6, Eosinophils (%) (Auto) 0, Basophils (%) (Auto) 0, Neutrophils # (Auto) 10.2H, Lymphocytes # (Auto) 1.6, Monocytes # (Auto) 0.7, Eosinophils # (Auto) 0.0, Basophils # (Auto) 0.0, Sodium Level 149H, Potassium Level 4.4, Chloride Level 108H, Carbon Dioxide Level 28, Anion Gap 13, Blood Urea Nitrogen 24H, Creatinine 1.20, Estimat Glomerular Filtration Rate 43, BUN/ Creatinine Ratio 20, Glucose Level 153H, Calcium Level 8.5, Corrected Calcium 9.6, Phosphorus Level 4.3, Magnesium Level 1.7L, Total Bilirubin 1.1H, Aspartate Amino Transf (AST/SGOT) 20, Alanine Aminotransferase (ALT/SGPT) 8, Alkaline Phosphatase 144H, B-Type Natriuretic Peptide 3008.4H, Total Protein 5.1L, Albumin 2.6L Microbiology 10/03/17 Blood Culture - Preliminary, Resulted Staph, 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 TECHNIQUE: Multiple contiguous axial images were obtained through the chest after administration of intravenous contrast. INDICATION: Cough, fever COMPARISON: There are no previous CT chest examinations available for comparison. FINDINGS: The plain film examination of the chest performed earlier today at 1:23 PM noted a fullness in the left hilum raising the question of a neoplastic mass in this area. On this exam, there is indeed a sizable 5.4 x 6.6 x 6.1 CM heterogeneous mass along the medial aspect of the left upper lung. This mass should be considered neoplastic until proven otherwise. The heart is mildly enlarged. There are coronary calcifications evident. The aorta is not abnormally dilated and there is no sign of dissection. The pulmonary arteries were not well opacified and consequently difficult to assess for a pulmonary embolus. There is no mediastinal or hilar adenopathy. There are chronic pulmonary changes evident and there are coarse interstitial densities about both darryl and in both lung bases, particularly on the right. There is no obvious breast mass. The sections through the upper abdomen fail to show any sign of an acute abnormality. There are surgical clips about the gallbladder fossa consistent with a prior cholecystectomy. There appears to be a small collection of fluid in this area. This may be fluid within the bowel as opposed to a free fluid collection. Also, there is a 1.3 x 1.4 CM nodule associated with the medial nenita of the right adrenal gland. This may represent a benign process. The possibility that this is secondary to metastatic disease secondary to the large lung mass cannot be entirely excluded however. If further imaging is desired, PET CT would be recommended. The bone windows show no sign of a fracture or of a destructive lesion. IMPRESSION: 1. There is a large mass along the medial aspect of the left upper lobe. This should be considered neoplastic until proven otherwise. 2. There is cardiomegaly and coronary artery disease and chronic pulmonary disease. There is no acute cardiopulmonary abnormality noted otherwise. 3. The nodule associated with the right adrenal gland may represent a benign process. The possibility that this is neoplastic in nature cannot be entirely excluded. Recommendations as above. 4. The fluid collection in the right upper quadrant may be fluid within the bowel. If further study is desired, then a complete CT abdomen and pelvis exam should be obtained. Assessment/Plan Assessment/Plan (1) Comfort measures only status Assessment & Plan: 10/08 -patient and family met with [facility] this morning and they have decided to proceed with hospice care; they [facility] for [facility], as it is currently a holiday weekend it is not likely that the patient will be able to obtain placement before Tuesday -will initiate comfort measures only, and stop all non-comfort measures medications, which was reviewed in detail with the family, who are in agreement (2) Septic shock Status: Resolved (3) Pneumonia involving left lung Status: Acute Assessment & Plan: 10/08/17 -family has elected to proceed with hospice care -will initiate hospice care in the hospital, as they desire placement in [facility] and this will likely not be accomplished until Tuesday; explained that this means we will stop all medications that are not providing patient comfort; family agreeable Qualifiers: Qualified Codes: J18.1 - Lobar pneumonia, unspecified organism (4) Mass of left lung Status: Acute Assessment & Plan: - Plan for broch during this hospitalization, Dr Carter consulted 10/08/17 -pt not stable for bronch due to acute PE per CTA -family has elected for hospice care -patient made comfort measures only with plans for placement in [facility] for hospice care on Tuesday (5) Diabetes Status: Chronic Assessment & Plan: - A1c pending 10/08/17 -patient now comfort measures only, she may eat and drink as desired -discontinue accuchecks and insulin Qualifiers: Qualified Codes: E11.9 - Type 2 diabetes mellitus without complications (6) Normocytic anemia Status: Chronic Assessment & Plan: - Patient transfused 1 units pRBCs 10/08 -Hgb 8.3, stable from yesterday -patient now comfort measures only, will stop all lab draws (7) HTN (hypertension) Status: Chronic Assessment & Plan: Holding home BP meds due to sepsis 10/08/17 -will stop meds as pt is now comfort measures only Qualifiers: Qualified Codes: I10 - Essential (primary) hypertension (8) Severe protein-calorie malnutrition Status: Chronic (9) Elevated INR Status: Acute Assessment & Plan: - Given Vit K given elevated INR (10) Wound of left leg Status: Acute Qualifiers: Qualified Codes: S81.802A - Unspecified open wound, left lower leg, initial encounter (11) Localized swelling of both lower extremities Status: Chronic (12) Hypokalemia Status: Resolved (13) Hypomagnesemia Status: Resolved Clinical Quality Measures DVT/VTE Risk/Contraindication: Risk Factor Score Per Nursin RFS Level Per Nursing on Admit: 4+=Very High Copy Copies To 1: [facility]/JIN MAGAÑA DO Oct 08, 2017 09:59
[2017-10-08] MEDS: VANCOMYCIN 750 MG/NS 250 ML IVPB IV SCH ×2 (12:08)
[2017-10-08] MEDS ORDERED: LORazepam ORAL CONCENTRATE 2 MG/ML 30 ML (ATIVAN) PO PRN (13:15)
[2017-10-08] MEDS ORDERED: RT-ALBUTEROL/IPRATROPIUM 3 ML (DUONEB) VIAL INH PRN (13:15)
[2017-10-08] MEDS ORDERED: BISACODYL 10 MG SUPP (DULCOLAX) PR PRN (13:15)
[2017-10-08] MEDS ORDERED: GLYCOPYRROLATE 0.2 MG/ML (ROBINUL) 2 ML VIAL IV PRN (13:15)
[2017-10-08] MEDS ORDERED: SALIVA STIMULANT MOUTH SPRAY (BIOTENE) 1.5 OZ MM PRN (13:15)
[2017-10-08] MEDS ORDERED: PROMETHAZINE INJ 25 MG/ML (PHENERGAN) AMP IVP PRN (13:15)
[2017-10-08] MEDS ORDERED: ATROPINE 1% OPHTHALMIC SOLN 2 ML SL PRN (13:15)
[2017-10-08] MEDS ORDERED: morphine (ROXINOL) 10 MG/0.5 ML oral conc 0.5 ML PO PRN (13:15)
[2017-10-08] MEDS ORDERED: ACETAMINOPHEN 650 MG SUPP (TYLENOL) PR PRN (13:15)
[2017-10-08] MEDS ORDERED: ARTIFICAL TEARS 0.4 ML UNIT DOSE (REFRESH PLUS) OU PRN (13:15)
[2017-10-08] MEDS ORDERED: ONDANSETRON 4 MG/2 ML (SDV) Z0FRAN IVP PRN (13:15)
[2017-10-08] MEDS: LORazepam INJ 2 MG/ML (ATIVAN) VIAL IVP PRN (22:00)
[2017-10-09] MEDS: LACTATED RINGERS 1,000 ML IV SCH (07:56)
[2017-10-09] MEDS: LORazepam INJ 2 MG/ML (ATIVAN) VIAL IVP PRN ×2 (07:56→13:29)
[2017-10-09] MEDS: PANTOPRAZOLE 40 MG (PROTONIX) VIAL IV SCH (08:05)
--- NOTE | 2017-10-09 09:04 | Progress Note (SOAP) ---
Subjective Subjective/Events-last exam Patient sleeping soundly at the time of exam. Family member at bedside reports that patient has woken up very little since last night. Per documentation, she received 1 mg of ativan last night, and one dose this morning. Discussed with family member that it is definitely possible that patient may pass away while still in the hospital, and he states understanding. Patient remains comfort measures only. Review of Systems Date Seen by Provider: Oct 09, 2017 Time Seen by Provider: 11:15 General: No Appetite Pulmonary: No Cough Cardiovascular: Edema Objective Exam Last Set of Vital Signs Vital Signs Date Time Temp Pulse Resp B/P (MAP) Pulse Ox O2 Delivery O2 Flow Rate FiO2 10/09/17 07:45 Nasal Cannula 1.00 10/08/17 20:00 100 10/08/17 16:00 66 25 133/72 (92) 10/08/17 12:31 98.7 10/08/17 04:00 35 Capillary Refill : Less Than 3 SecondsLess Than 3 Seconds I&O Intake and Output 10/09/17 00:00 Intake Total 960 ml Output Total 570 ml Balance 390 ml Intake Oral 660 ml IV Total 300 ml Output Urine Total 570 ml # Bowel Movements 1 General: No Acute Distress, Other (extremely sedated, moves lower extremeties when examined but otherwise has no response) HEENT: Atraumatic, Mucous Memb Moist/[place] Neck: Supple Lungs: Other (diminished, shallow) Heart: Regular Rate, Normal S1, Normal S2 Abdomen: Normal Bowel Sounds, Soft, No Tenderness Extremities: Other (generalized edema, worse in BLE than upper) Skin: Other (multiple wounds covered with clean, dry dressings) Neuro: Other (withdraws to cold hands when lower extremities are examined, but otherwise has no purposeful responses) Results/Procedures Lab Laboratory Tests 10/08/17 12:07: Glucometer 188H Microbiology 10/03/17 Blood Culture - Preliminary, Resulted Staph, Coag Neg ([employer]CR[employer]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 TECHNIQUE: Multiple contiguous axial images were obtained through the chest after administration of intravenous contrast. INDICATION: Cough, fever COMPARISON: There are no previous CT chest examinations available for comparison. FINDINGS: The plain film examination of the chest performed earlier today at 1:23 PM noted a fullness in the left hilum raising the question of a neoplastic mass in this area. On this exam, there is indeed a sizable 5.4 x 6.6 x 6.1 CM heterogeneous mass along the medial aspect of the left upper lung. This mass should be considered neoplastic until proven otherwise. The heart is mildly enlarged. There are coronary calcifications evident. The aorta is not abnormally dilated and there is no sign of dissection. The pulmonary arteries were not well opacified and consequently difficult to assess for a pulmonary embolus. There is no mediastinal or hilar adenopathy. There are chronic pulmonary changes evident and there are coarse interstitial densities about both darryl and in both lung bases, particularly on the right. There is no obvious breast mass. The sections through the upper abdomen fail to show any sign of an acute abnormality. There are surgical clips about the gallbladder fossa consistent with a prior cholecystectomy. There appears to be a small collection of fluid in this area. This may be fluid within the bowel as opposed to a free fluid collection. Also, there is a 1.3 x 1.4 CM nodule associated with the medial neinta of the right adrenal gland. This may represent a benign process. The possibility that this is secondary to metastatic disease secondary to the large lung mass cannot be entirely excluded however. If further imaging is desired, PET CT would be recommended. The bone windows show no sign of a fracture or of a destructive lesion. IMPRESSION: 1. There is a large mass along the medial aspect of the left upper lobe. This should be considered neoplastic until proven otherwise. 2. There is cardiomegaly and coronary artery disease and chronic pulmonary disease. There is no acute cardiopulmonary abnormality noted otherwise. 3. The nodule associated with the right adrenal gland may represent a benign process. The possibility that this is neoplastic in nature cannot be entirely excluded. Recommendations as above. 4. The fluid collection in the right upper quadrant may be fluid within the bowel. If further study is desired, then a complete CT abdomen and pelvis exam should be obtained. Assessment/Plan Assessment/Plan (1) Comfort measures only status Status: Acute Assessment & Plan: 10/08 -patient and family met with [facility] this morning and they have decided to proceed with hospice care; they would like snf facility placement for discharge, as it is currently a holiday weekend it is not likely that the patient will be able to obtain placement before Tuesday -will initiate comfort measures only, and stop all non-comfort measures medications, which was reviewed in detail with the family, who are in agreement 10/09 -continue with comfort measures only -discussed with family member at bedside that patient may not survive until snf placement, which would be Tuesday at the earliest, and that it is a very real possibility that she may pass away while in the hospital -family member states understanding and continues to enforce they want comfort measures only and that patient appears to be very comfortable at this time (2) Septic shock Status: Resolved (3) Pneumonia involving left lung Status: Acute Assessment & Plan: 10/08/17 -family has elected to proceed with hospice care -will initiate hospice care in the hospital, as they desire placement in snf and this will likely not be accomplished until Tuesday; explained that this means we will stop all medications that are not providing patient comfort; family agreeable Qualifiers: Qualified Codes: J18.1 - Lobar pneumonia, unspecified organism (4) Mass of left lung Status: Acute Assessment & Plan: - Plan for broch during this hospitalization, Dr Carter consulted 10/08/17 -pt not stable for bronch due to acute PE per CTA -family has elected for hospice care -patient made comfort measures only with plans for placement in snf for hospice care on Tuesday (5) Diabetes Status: Chronic Assessment & Plan: - A1c pending 10/08/17 -patient now comfort measures only, she may eat and drink as desired -discontinue accuchecks and insulin Qualifiers: Qualified Codes: E11.9 - Type 2 diabetes mellitus without complications (6) Normocytic anemia Status: Chronic Assessment & Plan: - Patient transfused 1 units pRBCs 10/08 -Hgb 8.3, stable from yesterday -patient now comfort measures only, will stop all lab draws (7) HTN (hypertension) Status: Chronic Assessment & Plan: Holding home BP meds due to sepsis 10/08/17 -will stop meds as pt is now comfort measures only Qualifiers: Qualified Codes: I10 - Essential (primary) hypertension (8) Severe protein-calorie malnutrition Status: Chronic (9) Wound of left leg Status: Acute Qualifiers: Qualified Codes: S81.802A - Unspecified open wound, left lower leg, initial encounter (10) Localized swelling of both lower extremities Status: Chronic (11) Hypokalemia Status: Resolved (12) Hypomagnesemia Status: Resolved Clinical Quality Measures End of Life/Advance Care Plan: Advance Care discuss with: family member (s) End of Life Care: Comfort Measures, Hospice (Hospital) (pt comfort care in hospital with plans for snf placement and [facility] at discharge, if she is to survive until that can be arranged) DVT/VTE Risk/Contraindication: Risk Factor Score Per Nursin RFS Level Per Nursing on Admit: 4+=Very High Contraindications-Pharm: Other *list below* Other: patient is now comfort measures only DVT/VTE Prophylaxis Comfirm.Dx Mechanical not ordered: Other (comfort measures only) Urinary Catheter-Non SCIP Pts: Reason for Catheter Continuanc: Palliative(End of Life) Copy Copies To 1: [facility]/JIN MAGAÑA DO Oct 09, 2017 09:03
[2017-10-09] MEDS: morphine INJ 4 MG/ML 1 ML (VIAL/SYRINGE) IVP PRN ×2 (10:27→14:31)
--- NOTE | 2017-10-10 05:37 | Pulmonary Progress Note ---
Subjective Time Seen by Provider: 07:15 Subjective/Events-last exam pt appears comfortable Sepsis Event Evaluation Height, Weight, BMI Height: 5'5.00" Weight: 148lbs. 3.0oz. 67.944012cd; 21.5 BMI Method:Stated Exam Exam Vital Signs Date Time Temp Pulse Resp B/P (MAP) Pulse Ox O2 Delivery O2 Flow Rate FiO2 10/09/17 20:00 100 Nasal Cannula 1.00 10/09/17 09:00 100 Nasal Cannula 1.00 10/09/17 07:45 Nasal Cannula 1.00 I & O 10/10/17 07:00 Intake Total 0 ml Output Total 325 ml Balance -325 ml Height & Weight Height: 5'5.00" Weight: 148lbs. 3.0oz. 67.253674og; 21.5 BMI Method:Stated General Appearance: Mild Distress, Thin HEENT: PERRL/EOMI, Pharynx Normal Neck: Non Tender, Supple Respiratory: No Respiratory Distress, Crackles Cardiovascular: No Murmur, Tachycardia Capillary Refill: Less Than 3 Seconds Gastrointestinal: non tender, soft, no organomegaly; No hepatomegaly, No spleenomegaly Extremity: Normal Capillary Refill, Pedal Edema (2+ to the mid tibia bilateral) Neurologic/Psychiatric: Alert, Motor Weakness (global) Skin: Normal Color, Warm/Dry Lymphatic: No Adenopathy Assessment/Plan Assessment/Plan Severe Sepsis secondary to Pneumonia vs UTI - BC Staphylococcus Acute respiratory distress through the night Pulmonary edema Persistent leukocytosis - afebrial Hx of hypothyroid with thyroidectomy Pulmonary edema Anemia S/p 1 unit of PRBC Large left mediastinal lung mass. Left leg wound/decub ulcer -Tissue trauma Malnutrition -Monitor DM, HTN pt is comfort care only now. I am going to sign off please call with any questions or concerns. ALLI JONES DO Oct 10, 2017 05:37
[2017-10-10] MEDS: LACTATED RINGERS 1,000 ML IV SCH (06:06)
[2017-10-10] MEDS: PANTOPRAZOLE 40 MG (PROTONIX) VIAL IV SCH (08:07)
[2017-10-10] MEDS: morphine INJ 4 MG/ML 1 ML (VIAL/SYRINGE) IVP PRN ×2 (08:11→13:49)
[2017-10-10] MEDS: LORazepam INJ 2 MG/ML (ATIVAN) VIAL IVP PRN (10:53)
[2017-10-11] MEDS: LORazepam INJ 2 MG/ML (ATIVAN) VIAL IVP PRN ×4 (00:25→21:24)
[2017-10-11] MEDS: LACTATED RINGERS 1,000 ML IV SCH (04:50)
[2017-10-11] MEDS: PANTOPRAZOLE 40 MG (PROTONIX) VIAL IV SCH (09:24)
[2017-10-11] MEDS: morphine INJ 4 MG/ML 1 ML (VIAL/SYRINGE) IVP PRN ×4 (09:32→23:39)
[2017-10-11] MEDS: LEVOTHYROXINE 100 MCG INJ (SYNTHROID) VIAL IV SCH (11:42)
--- NOTE | 2017-10-11 14:40 | Progress Note (SOAP) ---
Subjective Subjective/Events-last exam Patient resting comfortably. Family at bedside reports that patient has not woken up or responded to anything in over 24 hours. Review of Systems Date Seen by Provider: Oct 10, 2017 Time Seen by Provider: 17:15 Pulmonary: Other (shallow respirations) Gastrointestinal: No: Vomiting Neurological: Other (somnolent and unresponsive) Objective Exam Last Set of Vital Signs Vital Signs Date Time Temp Pulse Resp B/P (MAP) Pulse Ox O2 Delivery O2 Flow Rate FiO2 10/11/17 08:45 Nasal Cannula 1.00 10/10/17 08:00 100 10/08/17 16:00 66 25 133/72 (92) 10/08/17 12:31 98.7 10/08/17 04:00 35 Capillary Refill : Less Than 3 SecondsLess Than 3 Seconds I&O Intake and Output 10/11/17 00:00 Intake Total 0 ml Output Total 425 ml Balance -425 ml Intake Oral 0 ml Output Urine Total 425 ml # Bowel Movements 1 General: No Acute Distress, Other (sleeping peacefully, no response to verbal or tactile stimuli) HEENT: Atraumatic Neck: Supple Lungs: Other (coarse lung sounds bilaterally) Heart: Regular Rate, Normal S1, Normal S2 Abdomen: Soft, No Tenderness, No Masses Extremities: Other (edema in extremities x4) Skin: Other (multiple skin wounds, covered in clean bandages) Neuro: Other (no response to tactile or verbal stimulation) Results/Procedures Lab Microbiology 10/03/17 Blood Culture - Final, Complete Staph, Coag Neg (ELECTRIC CELL TENDER) 10/03/17 MRSA Screen - Final, Complete MRSA not isolated 10/03/17 Urine Culture - Final, Complete NO GROWTH Radiology Date of Exam: 10/03/17 CT CHEST W PROCEDURE: CT chest with contrast only. TECHNIQUE: Multiple contiguous axial images were obtained through the chest after administration of intravenous contrast. INDICATION: Cough, fever COMPARISON: There are no previous CT chest examinations available for comparison. FINDINGS: The plain film examination of the chest performed earlier today at 1:23 PM noted a fullness in the left hilum raising the question of a neoplastic mass in this area. On this exam, there is indeed a sizable 5.4 x 6.6 x 6.1 CM heterogeneous mass along the medial aspect of the left upper lung. This mass should be considered neoplastic until proven otherwise. The heart is mildly enlarged. There are coronary calcifications evident. The aorta is not abnormally dilated and there is no sign of dissection. The pulmonary arteries were not well opacified and consequently difficult to assess for a pulmonary embolus. There is no mediastinal or hilar adenopathy. There are chronic pulmonary changes evident and there are coarse interstitial densities about both darryl and in both lung bases, particularly on the right. There is no obvious breast mass. The sections through the upper abdomen fail to show any sign of an acute abnormality. There are surgical clips about the gallbladder fossa consistent with a prior cholecystectomy. There appears to be a small collection of fluid in this area. This may be fluid within the bowel as opposed to a free fluid collection. Also, there is a 1.3 x 1.4 CM nodule associated with the medial nenita of the right adrenal gland. This may represent a benign process. The possibility that this is secondary to metastatic disease secondary to the large lung mass cannot be entirely excluded however. If further imaging is desired, PET CT would be recommended. The bone windows show no sign of a fracture or of a destructive lesion. IMPRESSION: 1. There is a large mass along the medial aspect of the left upper lobe. This should be considered neoplastic until proven otherwise. 2. There is cardiomegaly and coronary artery disease and chronic pulmonary disease. There is no acute cardiopulmonary abnormality noted otherwise. 3. The nodule associated with the right adrenal gland may represent a benign process. The possibility that this is neoplastic in nature cannot be entirely excluded. Recommendations as above. 4. The fluid collection in the right upper quadrant may be fluid within the bowel. If further study is desired, then a complete CT abdomen and pelvis exam should be obtained. Assessment/Plan Assessment/Plan (1) Comfort measures only status Status: Acute Assessment & Plan: 10/08 -patient and family met with [facility] this morning and they have decided to proceed with hospice care; they would like [facility] facility placement for discharge, as it is currently a holiday weekend it is not likely that the patient will be able to obtain placement before Tuesday -will initiate comfort measures only, and stop all non-comfort measures medications, which was reviewed in detail with the family, who are in agreement 10/09 -continue with comfort measures only -discussed with family member at bedside that patient may not survive until [facility]p placement, which would be Tuesday at the earliest, and that it is a very real possibility that she may pass away while in the hospital -family member states understanding and continues to enforce they want comfort measures only and that patient appears to be very comfortable at this time 10/10 -patient remains comfort measures only, appears comfortable with current medications and is not having any response to stimuli today -again reinforced with family member that she may prior to transport to [facility], or en route, and depending on how things go overnight, it may be that allowing patient to pass away in the hospital is a better option -will reassess in AM, encouraged family to notify staff if they feel that patient appears uncomfortable (2) Septic shock Status: Resolved (3) Pneumonia involving left lung Status: Acute Assessment & Plan: 10/08/17 -family has elected to proceed with hospice care -will initiate hospice care in the hospital, as they desire placement in [facility] and this will likely not be accomplished until Tuesday; explained that this means we will stop all medications that are not providing patient comfort; family agreeable Qualifiers: Qualified Codes: J18.1 - Lobar pneumonia, unspecified organism (4) Mass of left lung Status: Acute Assessment & Plan: - Plan for broch during this hospitalization, Dr Carter consulted 10/08/17 -pt not stable for bronch due to acute PE per CTA -family has elected for hospice care -patient made comfort measures only with plans for placement in [facility] for hospice care on Tuesday (5) Diabetes Status: Chronic Assessment & Plan: - A1c pending 10/08/17 -patient now comfort measures only, she may eat and drink as desired -discontinue accuchecks and insulin Qualifiers: Qualified Codes: E11.9 - Type 2 diabetes mellitus without complications (6) Normocytic anemia Status: Chronic Assessment & Plan: - Patient transfused 1 units pRBCs 10/08 -Hgb 8.3, stable from yesterday -patient now comfort measures only, will stop all lab draws (7) HTN (hypertension) Status: Chronic Assessment & Plan: Holding home BP meds due to sepsis 10/08/17 -will stop meds as pt is now comfort measures only Qualifiers: Qualified Codes: I10 - Essential (primary) hypertension (8) Severe protein-calorie malnutrition Status: Chronic (9) Wound of left leg Status: Acute Qualifiers: Qualified Codes: S81.802A - Unspecified open wound, left lower leg, initial encounter (10) Localized swelling of both lower extremities Status: Chronic (11) Hypokalemia Status: Resolved (12) Hypomagnesemia Status: Resolved Clinical Quality Measures DVT/VTE Risk/Contraindication: Risk Factor Score Per Nursin RFS Level Per Nursing on Admit: 4+=Very High Contraindications-Pharm: Other *list below* Other: patient is now comfort measures only DVT/VTE Prophylaxis Comfirm.Dx Mechanical not ordered: Other (comfort measures only) Urinary Catheter-Non SCIP Pts: Reason for Catheter Continuanc: Palliative(End of Life) JIN KING DO Oct 11, 2017 14:40
--- NOTE | 2017-10-11 14:53 | Progress Note (SOAP) ---
Subjective Subjective/Events-last exam Social work notes indicate that family has requested patient attempt to be transferred to [facility], and her information has been faxed for their review. Patient remains somnolent, although is minimally responsive to tactile stimuli today. Nursing staff reports increasing periods of apnea. No family present at the time of exam. Review of Systems Date Seen by Provider: Oct 11, 2017 Time Seen by Provider: 12:06 unobtainable, patient unresponsive Objective Exam Last Set of Vital Signs Vital Signs Date Time Temp Pulse Resp B/P (MAP) Pulse Ox O2 Delivery O2 Flow Rate FiO2 10/11/17 08:45 Nasal Cannula 1.00 10/10/17 08:00 100 10/08/17 16:00 66 25 133/72 (92) 10/08/17 12:31 98.7 10/08/17 04:00 35 Capillary Refill : Less Than 3 SecondsLess Than 3 Seconds I&O Intake and Output 10/11/17 00:00 Intake Total 0 ml Output Total 425 ml Balance -425 ml Intake Oral 0 ml Output Urine Total 425 ml # Bowel Movements 1 General: No Acute Distress, Other (sleeping, shallow respirations, minimal response to tactile stimulation) HEENT: Atraumatic Neck: Supple Lungs: Other (coarse bilaterally, diminished) Heart: Regular Rate, Normal S1, Normal S2 Abdomen: Soft, No Tenderness, No Masses Extremities: Other (edema in extremities x4) Skin: Other (multiple skin tears covered with clean, dry bandages) Neuro: Other (minimally responsive to tactile stimulation only) Results/Procedures Lab Microbiology 10/03/17 Blood Culture - Final, Complete Staph, Coag Neg (ORTHOPAEDIC SURGEON) 10/03/17 MRSA Screen - Final, Complete MRSA not isolated 10/03/17 Urine Culture - Final, Complete NO GROWTH Radiology Date of Exam: 10/03/17 CT CHEST W PROCEDURE: CT chest with contrast only. TECHNIQUE: Multiple contiguous axial images were obtained through the chest after administration of intravenous contrast. INDICATION: Cough, fever COMPARISON: There are no previous CT chest examinations available for comparison. FINDINGS: The plain film examination of the chest performed earlier today at 1:23 PM noted a fullness in the left hilum raising the question of a neoplastic mass in this area. On this exam, there is indeed a sizable 5.4 x 6.6 x 6.1 CM heterogeneous mass along the medial aspect of the left upper lung. This mass should be considered neoplastic until proven otherwise. The heart is mildly enlarged. There are coronary calcifications evident. The aorta is not abnormally dilated and there is no sign of dissection. The pulmonary arteries were not well opacified and consequently difficult to assess for a pulmonary embolus. There is no mediastinal or hilar adenopathy. There are chronic pulmonary changes evident and there are coarse interstitial densities about both darryl and in both lung bases, particularly on the right. There is no obvious breast mass. The sections through the upper abdomen fail to show any sign of an acute abnormality. There are surgical clips about the gallbladder fossa consistent with a prior cholecystectomy. There appears to be a small collection of fluid in this area. This may be fluid within the bowel as opposed to a free fluid collection. Also, there is a 1.3 x 1.4 CM nodule associated with the medial nenita of the right adrenal gland. This may represent a benign process. The possibility that this is secondary to metastatic disease secondary to the large lung mass cannot be entirely excluded however. If further imaging is desired, PET CT would be recommended. The bone windows show no sign of a fracture or of a destructive lesion. IMPRESSION: 1. There is a large mass along the medial aspect of the left upper lobe. This should be considered neoplastic until proven otherwise. 2. There is cardiomegaly and coronary artery disease and chronic pulmonary disease. There is no acute cardiopulmonary abnormality noted otherwise. 3. The nodule associated with the right adrenal gland may represent a benign process. The possibility that this is neoplastic in nature cannot be entirely excluded. Recommendations as above. 4. The fluid collection in the right upper quadrant may be fluid within the bowel. If further study is desired, then a complete CT abdomen and pelvis exam should be obtained. Assessment/Plan Assessment/Plan (1) Comfort measures only status Status: Acute Assessment & Plan: 10/08 -patient and family met with [facility] this morning and they have decided to proceed with hospice care; they would like group home facility placement for discharge, as it is currently a holiday weekend it is not likely that the patient will be able to obtain placement before Tuesday -will initiate comfort measures only, and stop all non-comfort measures medications, which was reviewed in detail with the family, who are in agreement 10/09 -continue with comfort measures only -discussed with family member at bedside that patient may not survive until group home placement, which would be Tuesday at the earliest, and that it is a very real possibility that she may pass away while in the hospital -family member states understanding and continues to enforce they want comfort measures only and that patient appears to be very comfortable at this time 10/10 -patient remains comfort measures only, appears comfortable with current medications and is not having any response to stimuli today -again reinforced with family member that she may prior to transport to group home, or en route, and depending on how things go overnight, it may be that allowing patient to pass away in the hospital is a better option -will reassess in AM, encouraged family to notify staff if they feel that patient appears uncomfortable 10/11 -patient continues on comfort measures only -increasing periods of apnea have been noted by nursing staff -social work is pursuing possible transfer to nursing facility; it has previously been discussed with family that there is a possibility that patient may during transport, no family is present today at the time of exam (2) Septic shock Status: Resolved (3) Pneumonia involving left lung Status: Acute Assessment & Plan: 10/08/17 -family has elected to proceed with hospice care -will initiate hospice care in the hospital, as they desire placement in group home and this will likely not be accomplished until Tuesday; explained that this means we will stop all medications that are not providing patient comfort; family agreeable Qualifiers: Qualified Codes: J18.1 - Lobar pneumonia, unspecified organism (4) Mass of left lung Status: Acute Assessment & Plan: - Plan for broch during this hospitalization, Dr Carter consulted 10/08/17 -pt not stable for bronch due to acute PE per CTA -family has elected for hospice care -patient made comfort measures only with plans for placement in group home for hospice care on Tuesday (5) Diabetes Status: Chronic Assessment & Plan: - A1c pending 10/08/17 -patient now comfort measures only, she may eat and drink as desired -discontinue accuchecks and insulin Qualifiers: Qualified Codes: E11.9 - Type 2 diabetes mellitus without complications (6) Normocytic anemia Status: Chronic Assessment & Plan: - Patient transfused 1 units pRBCs 10/08 -Hgb 8.3, stable from yesterday -patient now comfort measures only, will stop all lab draws (7) HTN (hypertension) Status: Chronic Assessment & Plan: Holding home BP meds due to sepsis 10/08/17 -will stop meds as pt is now comfort measures only Qualifiers: Qualified Codes: I10 - Essential (primary) hypertension (8) Severe protein-calorie malnutrition Status: Chronic (9) Wound of left leg Status: Acute Qualifiers: Qualified Codes: S81.802A - Unspecified open wound, left lower leg, initial encounter (10) Localized swelling of both lower extremities Status: Chronic (11) Hypokalemia Status: Resolved (12) Hypomagnesemia Status: Resolved Clinical Quality Measures DVT/VTE Risk/Contraindication: Risk Factor Score Per Nursin RFS Level Per Nursing on Admit: 4+=Very High Contraindications-Pharm: Other *list below* Other: patient is now comfort measures only DVT/VTE Prophylaxis Comfirm.Dx Mechanical not ordered: Other (comfort measures only) Urinary Catheter-Non SCIP Pts: Reason for Catheter Continuanc: Palliative(End of Life) JIN KING DO Oct 11, 2017 14:53
[2017-10-11] MEDS: SCOPOLAMINE 1.5 MG (TRANSDERM-SCOP) PATCH TOP SCH (16:19)
[2017-10-12] MEDS: LORazepam INJ 2 MG/ML (ATIVAN) VIAL IVP PRN (00:37)
[2017-10-12] MEDS: morphine INJ 4 MG/ML 1 ML (VIAL/SYRINGE) IVP PRN ×3 (01:04→05:43)
[2017-10-12] MEDS: SCOPOLAMINE 1.5 MG (TRANSDERM-SCOP) PATCH TOP SCH (02:47)
--- NOTE | 2017-11-06 19:46 | Discharge Summary ---
Diagnosis/Chief Complaint Date of Admission Oct 03, 2017 at 15:35 Date of Discharge Oct 12, 2017 at 09:30 Admission Diagnosis Admission Diagnosis (1) Septic shock Status: Acute Assessment & Plan: - Patient has completed 30 mg/kg fluids, VS stable, LA resolved - Started on Vanc/zosyn, blood culture pending (2) Pneumonia involving left lung Status: Acute Assessment & Plan: - Likely post obstructive 2/2 mass - Will consult Emma to see if patient is candidate for broch vs Interventional Rad for bx Qualifiers: Qualified Codes: J18.1 - Lobar pneumonia, unspecified organism (3) Mass of left lung Status: Acute (4) Wound of left leg Status: Acute Assessment & Plan: - Consult wound care - Concerned for poor vascular supply Qualifiers: Qualified Codes: S81.802A - Unspecified open wound, left lower leg, initial encounter (5) Localized swelling of both lower extremities Status: Chronic (6) Decubital ulcer Status: Chronic Assessment & Plan: - Wound care Qualifiers: Qualified Codes: L89.159 - Pressure ulcer of sacral region, unspecified stage (7) Diabetes Status: Chronic Assessment & Plan: - SSI, A1c pending Qualifiers: Qualified Codes: E11.9 - Type 2 diabetes mellitus without complications (8) HTN (hypertension) Status: Chronic Assessment & Plan: - Will hold bp meds due to shock at this time, will continue to monitor Qualifiers: Qualified Codes: I10 - Essential (primary) hypertension (9) Severe protein-calorie malnutrition Status: Chronic (10) Elevated INR Status: Acute Assessment & Plan: - will repeat in AM (11) Elevated bilirubin Status: Acute Assessment & Plan: - Repeat in AM (12) Normocytic anemia Status: Chronic Assessment & Plan: - Will add iron panel, repeat in AM (13) Hypokalemia Status: Acute Assessment & Plan: - Replace and repeat (14) Hypomagnesemia Status: Acute Assessment & Plan: - Replace and repeat in AM Discharge Diagnosis (1) Comfort measures only status Status: Acute Assessment & Plan: 10/08 -patient and family met with [facility] this morning and they have decided to proceed with hospice care; they would like detention facility placement for discharge, as it is currently a holiday weekend it is not likely that the patient will be able to obtain placement before Tuesday -will initiate comfort measures only, and stop all non-comfort measures medications, which was reviewed in detail with the family, who are in agreement 10/09 -continue with comfort measures only -discussed with family member at bedside that patient may not survive until detention placement, which would be Tuesday at the earliest, and that it is a very real possibility that she may pass away while in the hospital -family member states understanding and continues to enforce they want comfort measures only and that patient appears to be very comfortable at this time 10/10 -patient remains comfort measures only, appears comfortable with current medications and is not having any response to stimuli today -again reinforced with family member that she may prior to transport to detention, or en route, and depending on how things go overnight, it may be that allowing patient to pass away in the hospital is a better option -will reassess in AM, encouraged family to notify staff if they feel that patient appears uncomfortable 10/11 -patient continues on comfort measures only -increasing periods of apnea have been noted by nursing staff -social work is pursuing possible transfer to nursing facility; it has previously been discussed with family that there is a possibility that patient may during transport, no family is present today at the time of exam (2) Septic shock Status: Resolved (3) Pneumonia involving left lung Status: Acute Assessment & Plan: 10/08/17 -family has elected to proceed with hospice care -will initiate hospice care in the hospital, as they desire placement in detention and this will likely not be accomplished until Tuesday; explained that this means we will stop all medications that are not providing patient comfort; family agreeable Qualifiers: Qualified Codes: J18.1 - Lobar pneumonia, unspecified organism (4) Mass of left lung Status: Acute Assessment & Plan: - Plan for broch during this hospitalization, Dr Carter consulted 10/08/17 -pt not stable for bronch due to acute PE per CTA -family has elected for hospice care -patient made comfort measures only with plans for placement in detention for hospice care on Tuesday (5) Diabetes Status: Chronic Assessment & Plan: - A1c pending 10/08/17 -patient now comfort measures only, she may eat and drink as desired -discontinue accuchecks and insulin Qualifiers: Qualified Codes: E11.9 - Type 2 diabetes mellitus without complications (6) Normocytic anemia Status: Chronic Assessment & Plan: - Patient transfused 1 units pRBCs 10/08 -Hgb 8.3, stable from yesterday -patient now comfort measures only, will stop all lab draws (7) HTN (hypertension) Status: Chronic Assessment & Plan: Holding home BP meds due to sepsis 10/08/17 -will stop meds as pt is now comfort measures only Qualifiers: Qualified Codes: I10 - Essential (primary) hypertension (8) Severe protein-calorie malnutrition Status: Chronic (9) Wound of left leg Status: Acute Qualifiers: Qualified Codes: S81.802A - Unspecified open wound, left lower leg, initial encounter (10) Localized swelling of both lower extremities Status: Chronic (11) Hypokalemia Status: Resolved (12) Hypomagnesemia Status: Resolved Chief Complaint/HPI Chief Complaint/HPI 82 yo F that presented to ER with a week of not feeling good. States that she had fatigue for the last 2 months with weight loss of 20#. States that she had chills and night sweats during this time. Denies any pain other then chronic pain in her low back. Couple day history of shortness of breath. Patient and grandson are poor historians Discharge Summary-Simple/Stand Consultations Discharge Physical Examination Allergies: Coded Allergies: No Known Drug Allergies (Unverified , 10/03/17) Hospital Course See final discharge diagnosis. Radiology Reviewed Date of Exam: 10/03/17 CT CHEST W PROCEDURE: CT chest with contrast only. TECHNIQUE: Multiple contiguous axial images were obtained through the chest after administration of intravenous contrast. INDICATION: Cough, fever COMPARISON: There are no previous CT chest examinations available for comparison. FINDINGS: The plain film examination of the chest performed earlier today at 1:23 PM noted a fullness in the left hilum raising the question of a neoplastic mass in this area. On this exam, there is indeed a sizable 5.4 x 6.6 x 6.1 CM heterogeneous mass along the medial aspect of the left upper lung. This mass should be considered neoplastic until proven otherwise. The heart is mildly enlarged. There are coronary calcifications evident. The aorta is not abnormally dilated and there is no sign of dissection. The pulmonary arteries were not well opacified and consequently difficult to assess for a pulmonary embolus. There is no mediastinal or hilar adenopathy. There are chronic pulmonary changes evident and there are coarse interstitial densities about both darryl and in both lung bases, particularly on the right. There is no obvious breast mass. The sections through the upper abdomen fail to show any sign of an acute abnormality. There are surgical clips about the gallbladder fossa consistent with a prior cholecystectomy. There appears to be a small collection of fluid in this area. This may be fluid within the bowel as opposed to a free fluid collection. Also, there is a 1.3 x 1.4 CM nodule associated with the medial nenita of the right adrenal gland. This may represent a benign process. The possibility that this is secondary to metastatic disease secondary to the large lung mass cannot be entirely excluded however. If further imaging is desired, PET CT would be recommended. The bone windows show no sign of a fracture or of a destructive lesion. IMPRESSION: 1. There is a large mass along the medial aspect of the left upper lobe. This should be considered neoplastic until proven otherwise. 2. There is cardiomegaly and coronary artery disease and chronic pulmonary disease. There is no acute cardiopulmonary abnormality noted otherwise. 3. The nodule associated with the right adrenal gland may represent a benign process. The possibility that this is neoplastic in nature cannot be entirely excluded. Recommendations as above. 4. The fluid collection in the right upper quadrant may be fluid within the bowel. If further study is desired, then a complete CT abdomen and pelvis exam should be obtained. Discharge Condition at discharge Instructions to patient/family Please see electronic discharge instructions given to patient. Discharge Medications Reviewed and agree with Discharge Medication list on patient's Discharge Instruction sheet Clinical Quality Measures DVT/VTE Risk/Contraindication: Risk Factor Score Per Nursin RFS Level Per Nursing on Admit: 4+=Very High Contraindications-Pharm: Other *list below* Other: patient is now comfort measures only DVT/VTE Prophylaxis Comfirm.Dx Mechanical not ordered: Other (comfort measures only) Urinary Catheter-Non SCIP Pts: Reason for Catheter Continuanc: Palliative(End of Life) Comfort Measures/ Type of Care: Hospice (Hospital) Date of : Oct 12, 2017 Time of : 06:30 JIN KING DO Nov 06, 2017 19:46
== END 2017-10-12 09:30 | disposition expired | DRG 871 ==
LOC: EDUNIT# 12:55 → ER 12:56 → ICU 15:35 → 4TH 10-08 16:10
PROVIDERS: ADMIT Family Medicine; ATTEND Family Medicine
PROC: 02HV33Z Insertion of Infusion Device into Superior Vena Cava, Percutaneous Approach (ICD-10-PCS; principal; 2017-10-03)
DX: A41.1 Sepsis due to other specified staphylococcus (principal); R65.21 Severe sepsis with septic shock; J18.9 Pneumonia, unspecified organism; I26.99 Other pulmonary embolism without acute cor pulmonale; J96.90 Respiratory failure, unspecified, unspecified whether with hypoxia or hypercapnia; E43 Unspecified severe protein-calorie malnutrition; J81.1 Chronic pulmonary edema; Z66 Do not resuscitate; Z51.5 Encounter for palliative care; R17 Unspecified jaundice; R91.8 Other nonspecific abnormal finding of lung field; L97.229 Non-pressure chronic ulcer of left calf with unspecified severity; L89.159 Pressure ulcer of sacral region, unspecified stage; S81.802A Unspecified open wound, left lower leg, initial encounter; S51.812A Laceration without foreign body of left forearm, initial encounter; I10 Essential (primary) hypertension; E11.9 Type 2 diabetes mellitus without complications; I87.2 Venous insufficiency (chronic) (peripheral); D50.9 Iron deficiency anemia, unspecified; D63.8 Anemia in other chronic diseases classified elsewhere; R32 Unspecified urinary incontinence; R15.9 Full incontinence of feces; R79.1 Abnormal coagulation profile; E87.6 Hypokalemia; E83.42 Hypomagnesemia; M54.5 Low back pain; R60.0 Localized edema; W19.XXXA Unspecified fall, initial encounter; Y92.129 Unspecified place in nursing home as the place of occurrence of the external cause; Z86.69 Personal history of other diseases of the nervous system and sense organs
CPT/HCPCS: 36415; 71045; 71260; 71275; 74019; 80053; 80202; 81000; 82728; 82805; 82962; 83036; 83540; 83605; 83735; 83880; 84100; 84132; 84443; 84484; 85007; 85025; 85027; 85379; 85610; 85730; 86850; 86900; 86901; 86920; 87040; 87077; 87081; 87088; 87186; 93005; 93306; 93970; 94640; 94660; 94760; 96365